=== PATIENT | female | born 1985 | race Caucasian/White ===

== ENCOUNTER 2016-08-20 00:33 | Emergency (ER) | payer OTHER ==
--- NOTE | 2016-08-20 02:23 | ED ---
I, Oh,Mabel, scribed for Damion Hernandez MD on 08/20/16 at 0205 . Shortness of Breath - HPI Summary HPI Summary: This 31 y/o female presents to ED for trouble breathing since 2-3 days ago. She decided to visit ED today when she became concerned with persistent dyspnea. Oxygen sat on RA at triage was 100%. Positive dizziness. PMHx includes depression/anxiety, bipolar, borderline personality disorder, and DM that is controlled with insulin pump. Pt recently had her med changes per PCP orders and states that she has been feeling dizziness ever since. Pt however denies notifying her PCP. - History of Current Complaint Chief Complaint: EDDizziness Time Seen by Provider: 08/20/16 01:58 Hx Obtained From: Patient, Medical Records Onset/Duration: Sudden Onset Timing: Constant Dyspnea At: Rest Associated Signs & Symptoms: Dizzy - Allergy/Home Medications Allergies/Adverse Reactions: Allergies Allergy/AdvReac Type Severity Reaction Status Date / Time No Known Allergies Allergy Verified 05/08/15 22:35 PMH/Surg Hx/FS Hx/Imm Hx Endocrine/Hematology History: Reports: Hx Diabetes Cardiovascular History: Denies: Hx Peripheral Vascular Disease Musculoskeletal History: Reports: Hx Back Problems Denies: Hx Arthritis, Hx Osteoporosis Sensory History: Denies: Hx Cataracts, Hx Contacts or Glasses, Hx Glaucoma Opthamlomology History: Denies: Hx Cataracts, Hx Contacts or Glasses, Hx Glaucoma Psychiatric History: Reports: Hx Anxiety, Hx Depression, Hx Inpatient Treatment , Hx Community Mental Health Tx, Hx Bipolar Disorder, Hx Suicide Attempt, Hx Substance Abuse Denies: Hx Attention Deficit Hyperactivity Disorder, Hx Eating Disorder, Hx Panic Disorder, Hx Post Traumatic Stress Disorder, Hx Schizophrenia, Hx of Violent Episodes Against Others, Other Psychiatric Issues/Disorders - Surgical History Surgery Procedure, Year, and Place: abscess drained under general anesthesia - Immunization History Date of Tetanus Vaccine: unknown Infectious Disease History: No Infectious Disease History: Denies: Hx Clostridium Difficile, Hx Hepatitis, Hx Human Immunodeficiency Virus (HIV), Hx of Known/Suspected MRSA, Hx Shingles, Hx Tuberculosis, Hx Known/ Suspected VRE, Hx Known/Suspected VRSA, History Other Infectious Disease, Traveled Outside the [place] in Last 30 Days - Family History Known Family History: Positive: Other Family History: Schizophrenia, anxiety, and EtOH dependence - Social History Alcohol Use: None Alcohol Amount: had approx 6 drinks tonight Hx Substance Use: Yes Substance Use Type: Reports: Sedatives, Tranquilizers Substance Use Comment - Amount & Last Used: Benzo's Hx Tobacco Use: Yes Smoking Status (MU): Light Every Day Tobacco Smoker Type: Cigarettes Amount Used/How Often: 1/2 PPD Length of Time of Smoking/Using Tobacco: 13 years Have You Smoked in the Last Year: Yes Review of Systems Negative: Fever Positive: Other - "trouble breathing" All Other Systems Reviewed And Are Negative: Yes Physical Exam Triage Information Reviewed: Yes Vital Signs On Initial Exam: Initial Vitals Temp Pulse Resp BP Pulse Ox 99.0 F 108 14 145/84 100 08/20/16 00:34 08/20/16 00:34 08/20/16 00:34 08/20/16 00:34 08/20/16 00:34 Vital Signs Reviewed: Yes Appearance: Positive: Well-Appearing, No Pain Distress Skin: Positive: Warm Head/Face: Positive: Normal Head/Face Inspection Eyes: Positive: DILLON ENT: Positive: Hearing grossly normal Neck: Positive: Supple Respiratory/Lung Sounds: Positive: Clear to Auscultation, Breath Sounds Present Cardiovascular: Positive: RRR Abdomen Description: Positive: Nontender, Soft Bowel Sounds: Positive: Present Musculoskeletal: Positive: Strength/ROM Intact Neurological: Positive: Alert, Oriented to Person Place, Time Diagnostics - Vital Signs Vital Signs Temp Pulse Resp BP Pulse Ox 08/20/16 00:34 99.0 F 108 14 145/84 100 - Laboratory Result Diagrams: 08/20/16 02:20 08/20/16 02:20 Lab Statement: Any lab studies that have been ordered have been reviewed, and results considered in the medical decision making process. Re-Evaluation - Re-Evaluation First Eval Change: Improved Comment: pt feels well, pt with low co2 will have pt f/u with pcp Course/Dx - Diagnoses Provider Diagnoses: Anxiety Discharge - Discharge Plan Condition: Improved Disposition: HOME Patient Education Materials: Anxiety (ED) Referrals: Non Staff,Doctor [Primary Care Provider] - 2 Days The documentation as recorded by the Nic kang Soohyun accurately reflects the service I personally performed and the decisions made by me, Damion Hernandez MD.
[2016-08-20 02:32] LABS: Hematocrit 43 % (35-47); Hemoglobin 14.9 g/dl (12.0-16.0); Mean Corpuscular HGB Conc 35 g/dl (31-36); Mean Corpuscular Hemoglobin 32 pg (27-31); Mean Corpuscular Volume 93 fL (80-97); Mean Platelet Volume 8 um3 (7.4-10.4); Red Blood Count 4.63 10^6/ul (4.0-5.4); Red Cell Distribution Width 12 % (10.5-15); White Blood Count 12.3 10^3/ul (3.5-10.8)
[2016-08-20 02:50] LABS: BUN/Creatinine Ratio 23.9 (8-20); Calcium 8.7 mg/dL (8.6-10.3); EGFR African American 132.9 (>60); EGFR Non-African American 103.3 (>60); Potassium 3.7 mmol/L (3.5-5.0)
[2016-08-20 02:51] LABS: Lithium 0.43 mmol/L (0.6-1.2)
[2016-08-20 02:59] VITALS: BP 129/74
== END 2016-08-20 02:58 | disposition home or self-care (01) ==
LOC: ED 00:33
DX: F41.9 Anxiety disorder, unspecified (principal); R06.00 Dyspnea, unspecified; F17.210 Nicotine dependence, cigarettes, uncomplicated
CPT/HCPCS: 36415; 80048; 80178; 85025; 99281

== ENCOUNTER 2016-08-21 20:34 | Emergency (ER) | payer OTHER ==
[2016-08-21 20:48] VITALS: BP 135/85
--- NOTE | 2016-08-21 20:56 | UC ---
Dizzy HPI HPI Summary: The patient comes in today for: 1. Shortness of breath and dizziness, headache, nausea, feel like I am going to pass out: Onset: Dizziness and nausea started a week ago. Difficulty breathing started 3- 4 days ago. Palliative/provocative: Nothing makes her symptoms better or worse. Quality: Dull Region: In terms of where her headache is she states, "I don't know--all of it. " Severity: 08/13 Time: Constant. Associated symptoms: Dizziness: near syncope Vomiting: x 1. Diarrhea: None. ON and off for 1 week: never "passed out." Previous evaluation and treatment: She was seen in the "a couple nights ago " and told her "that I was fine." Previous treatment at home: None except Xanax today which helped her go to sleep. She has not been eating due to her nausea. * - History Of Current Complaint Chief Complaint: UCRespiratory Stated Complaint: TROUBLE BREATHING AND DIZZY Time Seen by Provider: 08/21/16 20:38 Hx Obtained From: Patient, Family/Central Sterile Technician Hx Last Menstrual Period: NO PERIOD FOR 1 YEAR. SHE HAS AN IUD - Allergies/Home Medications Allergies/Adverse Reactions: Allergies Allergy/AdvReac Type Severity Reaction Status Date / Time No Known Allergies Allergy Verified 08/21/16 20:40 Home Medications: Home Medications Levonorgestrel (Iud) [Mirena IUD] 1 imp IMPLANT DAILY 08/21/16 [History Confirmed 08/21/16] PMH/Surg Hx/FS Hx/Imm Hx Previously Healthy: No Endocrine History Of: Reports: Diabetes Denies: Thyroid Disease, Hyperthyroidism, Hypothyroidism, Dyslipidemia Cardiovascular History Of: Denies: Cardiac Disorders, Hypertension, Pacemaker/ICD, Myocardial Infarction , Congestive Heart Failure, Atrial Fibrillation, Deep Vein Thrombosis, Bleeding Disorders Respiratory History Of: Denies: COPD, Asthma, Bronchitis, Pneumonia, Pulmonary Embolism GI/ History Of: Reports: Gastroesophageal Reflux Denies: Ulcer, Gastrointestinal Bleed, Gall Bladder Disease, Kidney Stones, Diverticulitis, Renal Disease, Urosepsis Neurological History Of: Denies: TIA, CVA, Dementia, Seizures, Migraine Psychological History Of: Reports: Anxiety, Depression, Bipolar Disorder Cancer History Of: Denies: Lung Cancer, Colorectal Cancer, Breast Cancer, Prostate Cancer, Cervical Cancer Other History Of: Negative For: HIV, Hepatitis B, Hepatitis C, Anticoagulant Therapy - Surgical History Surgical History: Yes Surgery Procedure, Year, and Place: abscess drained under general anesthesia - Family History Known Family History: Positive: Other Negative: Cardiac Disease, Hypertension Family History: Schizophrenia, anxiety, and EtOH dependence - Social History Occupation: Unemployed Alcohol Use: None Alcohol Amount: had approx 6 drinks tonight Substance Use Type: Sedatives, Tranquilizers Substance Use Comment - Amount & Last Used: Benzo's Smoking Status (MU): Light Every Day Tobacco Smoker Type: Cigarettes Amount Used/How Often: 1/2 PPD Length of Time of Smoking/Using Tobacco: 13 years Have You Smoked in the Last Year: Yes Household Exposure Type: Cigarettes - Immunization History Most Recent Influenza Vaccination: client unable to recall Most Recent Tetanus Shot: "few years ago" Most Recent Pneumonia Vaccination: reports she has received in the past Review of Systems Constitutional: Negative Skin: Negative Eyes: Negative ENT: Negative Respiratory: Shortness Of Breath Cardiovascular: Negative, Chest Pain - Chest pain is retrosternal and dull. No radiation. Nausea: present. Gastrointestinal: Negative, Vomiting Genitourinary: Negative Motor: Negative Musculoskeletal: Arthralgia, Myalgia All Other Systems Reviewed And Are Negative: Yes Physical Exam Triage Information Reviewed: Yes Appearance: No Pain Distress, Well-Nourished, Other: - The patient is very subdued. She can be barely heard when she answers my questions. She is not struggling for breath. She barely keeps her eyes open. She has no animation. She is cooperative but minimally interested in doing things (such as agreeding to testing) which may be helpful in her medical care. Vital Signs: Initial Vital Signs Temp 97.8 F 08/21/16 20:44 Pulse 95 08/21/16 20:44 Resp 16 08/21/16 20:44 BP 135/85 08/21/16 20:44 Pulse Ox 100 08/21/16 20:44 Vital Signs Reviewed: Yes Eyes: Positive: Conjunctiva Clear. Negative: Discharge ENT: Positive: Hearing grossly normal. Negative: Pharyngeal erythema, Nasal congestion, Nasal drainage, TM bulging, TM dull, TM red, Tonsillar swelling, Tonsillar exudate Dental: Negative: Gross Decay/Caries @, Dental Fracture @ Neck: Positive: Supple, Nontender, No Lymphadenopathy. Negative: Nuchal Rigidity Respiratory: Positive: Chest non-tender, Lungs clear, No respiratory distress, No accessory muscle use, Other: - She has no abnormal lung sounds. She offers poor effort when asked to take a deep breath.. Negative: Rhonchi, Wheezing Cardiovascular: Positive: RRR, No Murmur Abdomen Description: Positive: Nontender, No Organomegaly, Soft. Negative: Distended, Guarding Musculoskeletal: Positive: Strength Intact, ROM Intact, No Edema Neurological: Positive: Alert, Muscle Tone Normal Psychological: Positive: Normal Response To Family, Age Appropriate Behavior, Consolable Skin: Negative: rashes, breakdown Diagnostics - Laboratory Diagnostic Studies Completed/Ordered: Random blood glucose: 235. CXR: (-). EKG : Rate: 83. Rhythm: normal sinus. Ectopy: None. Acute changes: None. Prolonged QT interval. Urine screen: Specific gravity: 1.030. WBC: (-). Nitrite: (-). Blood: 2+. Protein: 2+. Glucose: 1+ Dizzy Course/Dx - Course Course Of Treatment: Patient was told of our limited testing options here. She initially was not particularly interested in getting any of them done. But, her female automatic maintainer was able to convince her to have them done. She was told that I could not explain her shortness of breath, near syncope. She had a prolonged QT interval. She was told that to investigate this, she would need to have further evaluation. She refuses to go to the ER tonight. - Differential Dx/Diagnosis Differential Diagnosis/HQI/PQRI: Dysrhythmia Provider Diagnoses: Prolonged QT interval. Diabetes. Dyspnea etiology undetermined. Near syncope. Bipolar. Nausea. Headache. Depression Discharge - Discharge Plan Condition: Stable Disposition: AGAINST MEDICAL ADVICE Referrals: Non Staff,Doctor [Primary Care Provider] - [facility] [Outside] David Yao DO [Medical Doctor] - As Soon As Possible (Please contact Dr. Yao's office as soon as you can for a follow up on your prolonged QT interval ) Additional Instructions: If you are not going to the ER, please see your primary care provider as soon as you can for evaluation and treatment. If you don't have a primary care provider, please call the physician referral line. Between now and then, please try to see your reimbursement representative for follow up. If you get worse, please reconsider going to the ER.
--- NOTE | 2016-08-21 21:49 | RAD ---
INDICATION: Shortness of breath. COMPARISON: Similar chest x-ray dated February 27, 2015 TECHNIQUE: PA and lateral views of the chest were obtained. FINDINGS: The heart and mediastinum are normal in size and contour. The lungs are grossly clear. There is no evidence of large pleural effusion. Visualized bones are normal for the patient's age. There is no radiographic evidence of free air beneath the diaphragm IMPRESSION: No radiographic evidence of acute cardiopulmonary disease.
== END 2016-08-21 22:00 | disposition left against medical advice (07) ==
LOC: UCEAST 20:34
DX: R06.00 Dyspnea, unspecified (principal); R55 Syncope and collapse; R11.0 Nausea; R51 Headache; I44.0 Atrioventricular block, first degree; E11.9 Type 2 diabetes mellitus without complications; F31.9 Bipolar disorder, unspecified; F17.210 Nicotine dependence, cigarettes, uncomplicated
CPT/HCPCS: 71020; 81003; 84702; 93005; 99212; G0463

== ENCOUNTER 2016-08-21 22:19 | Observation (INO) | payer OTHER ==
[2016-08-22] MEDS: NS 0.9% 1000 ML* 3,000 ML IV ONE ×2 (00:19→01:14)
[2016-08-22 00:40] LABS: Hemoglobin 16.1 g/dl (12.0-16.0); Red Cell Distribution Width 12 % (10.5-15)
[2016-08-22 00:42] LABS: Hematocrit 47 % (35-47); Mean Corpuscular HGB Conc 34 g/dl (31-36); Mean Corpuscular Hemoglobin 32 pg (27-31); Mean Corpuscular Volume 94 fL (80-97); Mean Platelet Volume 8 um3 (7.4-10.4); Red Blood Count 5.01 10^6/ul (4.0-5.4); White Blood Count 10.7 10^3/ul (3.5-10.8)
[2016-08-22 00:50] LABS: ALT 15 U/L (7-52); AST 12 U/L (13-39); Albumin 4.3 g/dL (3.2-5.2); Alkaline Phosphatase 116 U/L (34-104); BUN/Creatinine Ratio 8.1 (8-20); Blood Urea Nitrogen 6 mg/dL (6-24); C Reactive Protein 11.58 mg/L (< 5.00); Calcium 8.8 mg/dL (8.6-10.3); Chloride 105 mmol/L (101-111); Creatine Kinase 36 U/L (10-223); EGFR African American 118.5 (>60); EGFR Non-African American 92.1 (>60); Globulin 2.9 g/dL (2-4); Glucose 165 mg/dL (70-100); Potassium 3.5 mmol/L (3.5-5.0); Sodium 132 mmol/L (133-145); Total Protein 7.2 g/dL (6.4-8.9)
[2016-08-22 00:54] LABS: Alcohol < 10 mg/dL (<10)
--- NOTE | 2016-08-22 00:55 | ED ---
Complex/Multi-Sys Presentation - HPI Summary HPI Summary: 31 year old female arrived to [facility] from [facility] c/o N/V and dizziness for 1 week ; SOB for the past 5 days. Vomiting has been minimal. Denies diarrhea. She also denies any fever, chills, URI sx, cough, back pain, ab pain, dysuria, flank pain , skin changes/wounds. She does not know what triggered these sx but reports she stopped taking her olanzapine and fluoxetine 4 weeks ago "cold turkey". She is currently tapering her lithium and trileptal. These were rx'd through her psychiatrist. However after discussing with her psychiatrist, pt did not feel these meds were working for her anymore and so she decided to stop taking them. Reports her psychiatrist told her to go ahead and stop meds without taper. She denies any ill effects upon abrupt cessation of olanzapine and fluoxetine. She also remarks that she's tapering the lithium and trileptal because she felt it would be safer than stopping cold turkey. Still taking wellbutrin. She takes these for bipolar d/o among other MH d/o's. Furthermore, her ECG at earlier tonight revealed QT prolongation. Most recent ECG from Mar 2015 was NSR w/o QT prolongation. She denies h/o cardiac pathology. NOTE: fluoxetine can cause QT prolongation. U/A @ reveals + protein, +glucose, + blood, + ketones She also had a CXR @ - normal. She was at [facility] on 08/19/2016 with similar symptoms. She is a regular drinker and smoker - denies illicit drug use. Admits she took 1.5mg of xanax today to help her sleep as she just didn't feel good. She has Type 1 diabetes. Uses an insulin pump which she reports was not working earlier today - screen flashed a message to call customer service at one point. She believes this has been working well otherwise. Just changed it a few days ago. Has been in diabetic ketoacidosis before and does not feel this is what's happening now. - History Of Current Complaint Chief Complaint: EDGeneral Time Seen by Provider: 08/21/16 23:22 Hx Obtained From: Patient - Allergies/Home Medications Allergies/Adverse Reactions: Allergies Allergy/AdvReac Type Severity Reaction Status Date / Time No Known Allergies Allergy Verified 08/21/16 20:40 PMH/Surg Hx/FS Hx/Imm Hx Previously Healthy: No - today's sx present for past 1 week Endocrine/Hematology History: Reports: Hx Diabetes - Type 1, insulin pump Denies: Hx Anticoagulant Therapy, Hx Thyroid Disease Cardiovascular History: Denies: Hx Congestive Heart Failure, Hx Deep Vein Thrombosis, Hx Hypertension , Hx Myocardial Infarction, Hx Pacemaker/ICD, Hx Peripheral Vascular Disease Respiratory History: Denies: Hx Asthma, Hx Chronic Obstructive Pulmonary Disease (COPD), Hx Lung Cancer, Hx Pneumonia, Hx Pulmonary Embolism GI History: Denies: Hx Gall Bladder Disease, Hx Gastrointestinal Bleed, Hx Ulcer, Hx Urosepsis History: Denies: Hx Kidney Stones, Hx Renal Disease Musculoskeletal History: Reports: Hx Back Problems Denies: Hx Arthritis, Hx Osteoporosis Sensory History: Denies: Hx Cataracts, Hx Contacts or Glasses, Hx Glaucoma Opthamlomology History: Denies: Hx Cataracts, Hx Contacts or Glasses, Hx Glaucoma Neurological History: Denies: Hx Dementia, Hx Migraine, Hx Seizures, Hx Transient Ischemic Attacks (TIA) Psychiatric History: Reports: Hx Anxiety, Hx Depression, Hx Inpatient Treatment , Hx Community Mental Health Tx, Hx Bipolar Disorder, Hx Suicide Attempt, Hx Substance Abuse Denies: Hx Attention Deficit Hyperactivity Disorder, Hx Eating Disorder, Hx Panic Disorder, Hx Post Traumatic Stress Disorder, Hx Schizophrenia, Hx of Violent Episodes Against Others, Other Psychiatric Issues/Disorders - Surgical History Surgery Procedure, Year, and Place: abscess drained under general anesthesia - Immunization History Date of Tetanus Vaccine: unknown Infectious Disease History: No Infectious Disease History: Denies: Hx Clostridium Difficile, Hx Hepatitis, Hx Human Immunodeficiency Virus (HIV), Hx of Known/Suspected MRSA, Hx Shingles, Hx Tuberculosis, Hx Known/ Suspected VRE, Hx Known/Suspected VRSA, History Other Infectious Disease, Traveled Outside the [place] in Last 30 Days - Family History Known Family History: Positive: None, Other Negative: Cardiac Disease, Hypertension Family History: Schizophrenia, anxiety, and EtOH dependence - Social History Lives: With Family - boyfriend Alcohol Use: None Alcohol Amount: had approx 6 drinks last night Hx Substance Use: Yes Substance Use Type: Reports: Sedatives, Tranquilizers Substance Use Comment - Amount & Last Used: Benzo's Hx Tobacco Use: Yes Smoking Status (MU): Current Every Day Smoker Type: Cigarettes Amount Used/How Often: 1/2 PPD Length of Time of Smoking/Using Tobacco: 13 years Have You Smoked in the Last Year: Yes Review of Systems Positive: Fatigue. Negative: Fever, Chills ENT: Negative Negative: Chest Pain Positive: Shortness Of Breath - see HPI. Negative: Cough Positive: Vomiting, Nausea. Negative: Abdominal Pain, Diarrhea Genitourinary: Negative Negative: dysuria, discharge, frequency, flank pain Musculoskeletal: Negative Skin: Negative Positive: Weakness - generalized Psychological: Normal All Other Systems Reviewed And Are Negative: Yes Physical Exam Triage Information Reviewed: Yes Vital Signs On Initial Exam: Initial Vitals Temp Pulse Resp BP Pulse Ox 97.6 F 87 16 136/88 100 08/21/16 22:30 08/21/16 22:30 08/21/16 22:30 08/21/16 22:30 08/21/16 22:30 Vital Signs Reviewed: Yes Appearance: Positive: No Pain Distress, Ill-Appearing - appears mildly fatigued , Obese Skin: Positive: Warm, Dry - inuslin pump site on RLQ is w/o erythema, edema or d /c Head/Face: Positive: Normal Head/Face Inspection Eyes: Positive: Normal, EOMI, Conjunctiva Clear - ANICTERIC SCLERA ENT: Positive: Hearing grossly normal, TMs normal, Other - Lips and oral mucosa are dry - breath has strong acetone aroma. Negative: Nasal congestion, Nasal drainage Neck: Positive: Supple, Nontender Respiratory/Lung Sounds: Positive: Clear to Auscultation, Breath Sounds Present. Negative: Rales, Rhonchi, Wheezes Cardiovascular: Positive: Normal, RRR, Pulses are Symmetrical in both Upper and Lower Extremities, S1, S2. Negative: Murmur, Rub Abdomen Description: Positive: Nontender, Soft Bowel Sounds: Positive: Present Musculoskeletal: Positive: Normal, Strength/ROM Intact Neurological: Positive: Normal, Sensory/Motor Intact, Alert, Oriented to Person Place, Time, CN Intact II-III Psychiatric: Positive: Normal - Ross Coma Scale Coma Scale Total: 15 Diagnostics - Vital Signs Vital Signs Temp Pulse Resp BP Pulse Ox 08/21/16 22:30 97.6 F 87 16 136/88 100 - Laboratory Lab Results: Lab Results 08/22/16 Range/Units 00:14 WBC 10.7 (3.5-10.8) 10^3/ul RBC 5.01 (4.0-5.4) 10^6/ul Hgb 16.1 H (12.0-16.0) g/dl Hct 47 (35-47) % MCV 94 (80-97) fL MCH 32 H (27-31) pg MCHC 34 (31-36) g/dl RDW 12 (10.5-15) % Plt Count 221 (150-450) 10^3/ul MPV 8 (7.4-10.4) um3 Neut % (Auto) 71.7 (38-83) % Lymph % (Auto) 20.8 L (25-47) % [place] % (Auto) 5.9 (1-9) % Eos % (Auto) 1.1 (0-6) % Baso % (Auto) 0.5 (0-2) % Absolute Neuts (auto) 7.7 (1.5-7.7) 10^3/ul Absolute Lymphs (auto) 2.2 (1.0-4.8) 10^3/ul Absolute Monos (auto) 0.6 (0-0.8) 10^3/ul Absolute Eos (auto) 0.1 (0-0.6) 10^3/ul Absolute Basos (auto) 0 (0-0.2) 10^3/ul Absolute Nucleated RBC 0 10^3/ul Nucleated RBC % 0 Result Diagrams: 08/22/16 00:14 08/22/16 00:14 Lab Statement: Any lab studies that have been ordered have been reviewed, and results considered in the medical decision making process. Complex Multi-Symp Course/Dx Course Of Treatment: Pt presents w/ 1 week of N/V and 5 days of SOB. She was seen at and found to have + urine findings of ketoacidosis as well as QT prologation on ECG. Upon arrival here, her breath is noted to have an acetone aroma and she admits her pump has been acting up this afternoon - most likely not working. Labs indicate a low CO2, phosphorous, K+ and elevated anion gap. WBC's are WNL. This and glucose are improved from labs yesterday although glucose is still elelvated at 163. She has not had anything to eat today as she just didn't feel well. Discussed case w/ Dr. Juárez who would like insulin drip at 0.05units/kg/hr and D5 in 1/2NS K20 @ 200cc/hr. Her insulin pump will be removed prior to insulin drip and advised pt to inqure about repair while here. She will be admitted to ICU for tx and observation. - Diagnoses Provider Diagnoses: Hypophosphatemia, Ketonuria, Diabetes type I - Physician Notifications Discussed Care Of Patient With: Dr. Hernandez. Dr. Juárez Discharge - Discharge Plan Condition: Stable Disposition: ADMITTED TO [facility]
[2016-08-22 01:04] LABS: TSH (Thyroid Stimulating Horm) 2.07 mcIU/mL (0.34-5.60)
[2016-08-22 01:08] LABS: Anion Gap 16 mmol/L (2-11); CO2 Carbon Dioxide 11 mmol/L (22-32)
[2016-08-22 01:09] LABS: Phosphorus < 1.0 mg/dL (2.5-5.0)
[2016-08-22] MEDS: D5W 1/2 NS KCl 20 Meq 1000 ML* 1,000 ML IV SCH ×2 (02:09→08:15)
[2016-08-22 03:40] LABS: PCO2 Arterial 17 mmHg (35-45)
[2016-08-22] MEDS ORDERED: ALPRAZolam TAB* 0.5 MG PO PRN (03:59)
[2016-08-22 04:05] LABS: BUN/Creatinine Ratio 7.8 (8-20); EGFR African American 140.1 (>60); Magnesium 1.8 mg/dL (1.9-2.7); Potassium 3.2 mmol/L (3.5-5.0)
[2016-08-22] MEDS ORDERED: Potassium Phosphate IV* 15 MMOLE in NS 0.9% 250 ML* 250 ML IVPB ONE (04:06)
[2016-08-22 04:43] LABS: Urine Bacteria Absent (Absent); Urine Bilirubin Negative (Negative); Urine Glucose 3+(>=500 mg/dL) (Negative); Urine Nitrite Negative (Negative)
[2016-08-22] MEDS ORDERED: NS 0.9% 250 ML* 250 ML ONE (05:29)
[2016-08-22] MEDS: Heparin VIAL(*) 5000 UNITS/ML VIAL (FIVE THOUSAND) SUBCUT SCH ×3 (06:02→20:39)
[2016-08-22 07:08] LABS: BUN/Creatinine Ratio 7.3 (8-20); Blood Urea Nitrogen 4 mg/dL (6-24); Calcium 7.2 mg/dL (8.6-10.3); Chloride 114 mmol/L (101-111); EGFR African American 166.9 (>60); EGFR Non-African American 129.8 (>60); Glucose 201 mg/dL (70-100); Sodium 135 mmol/L (133-145)
[2016-08-22 07:19] LABS: Potassium 2.7 mmol/L (3.5-5.0)
[2016-08-22 07:20] LABS: Anion Gap 11 mmol/L (2-11); CO2 Carbon Dioxide 10 mmol/L (22-32)
[2016-08-22 07:26] LABS: Phosphorus < 1.0 mg/dL (2.5-5.0)
[2016-08-22] MEDS: BuPROPion XL* 300 MG TAB.XL PO SCH (07:51)
[2016-08-22] MEDS: Potassium & Sodium Phos 250MG* = 1 PACKET PO SCH ×4 (07:51→20:39)
[2016-08-22] MEDS ORDERED: Acetaminophen SUPP* 650 MG SUPP PR PRN (08:21)
[2016-08-22] MEDS ORDERED: Ondansetron INJ* 2 MG/ML VIAL IV PRN (08:21)
[2016-08-22] MEDS ORDERED: Potassium Chlor TAB* 20 MEQ TAB.ER PO ONE (10:14)
[2016-08-22 10:39] LABS: BUN/Creatinine Ratio 7.4 (8-20); Calcium 7.9 mg/dL (8.6-10.3); EGFR African American 170.5 (>60); EGFR Non-African American 132.6 (>60); Potassium 2.9 mmol/L (3.5-5.0)
[2016-08-22] MEDS ORDERED: Dextrose 50% Syringe 50 ML* 25 GM/50 ML SYRINGE IV PUSH PRN (11:26)
[2016-08-22] MEDS ORDERED: Insulin GLARGINE(*) 1 UNITS UNIT SUBCUT SCH (12:00)
[2016-08-22] MEDS: Insulin LISPRO* 1 UNITS UNIT SUBCUT SCH ×6 (12:43→20:30)
--- NOTE | 2016-08-22 14:32 | HP ---
HISTORY AND PHYSICAL: DATE OF ADMISSION: 08/22/2016. CHIEF COMPLAINT: Shortness of breath. HISTORY OF PRESENT ILLNESS: The patient is a 31-year-old woman with past medical history of type 1 diabetes and bipolar disorder, who presented to [facility] with chief complaint of shortness breath. She also has some chest pain, which is constant. It is 3/10 in severity. It is a dull pain. It is mid sternal. The shortness of breath is also constant. It cannot get worse when she lies down, but does only matter if she is moving. She denies any wheezing or cough. She has never had this before. Of note, the patient was normally on fluoxetine and olanzapine, which she stopped suddenly 2 weeks ago, she said according to her doctor's instruction, and she is being tapering herself off lithium and Trileptal as well. PAST MEDICAL HISTORY: Significant for type 1 diabetes, depression, anxiety, and bipolar disorder. MEDICATIONS: Her current medications are: 1. Insulin pump. 2. Bupropion XL 300 mg in the morning. 3. IUD implant. 4. As noted, Xanax 1 mg 3 times a day as needed. As noted, she has been tapering off her lithium and Trileptal. She stopped her fluoxetine and olanzapine. ALLERGIES: No known drug allergies. FAMILY HISTORY: Mother is alive and well at 55. Father is alive at 65 with COPD and prostate cancer. SOCIAL HISTORY: She smokes few cigarettes a day. Rare alcohol. No recreational drug abuse. She is on disability. She has a significant other for 13 years, Yohan Underwood, she calls her healthcare proxy. She has a 7-year- old daughter. REVIEW OF SYSTEMS: A 14-point review of systems was completed with the patient. All pertinent positives and negatives are in the history of present illness, otherwise is negative. PHYSICAL EXAMINATION GENERAL: Pleasant woman, lying in bed, in no acute distress. VITAL SIGNS: Temperature 99.3 degrees, heart rate 78 beats per minute, respiratory rate 16 breaths per minute, pulse ox 100%, blood pressure /83. HEENT: Normocephalic, atraumatic. Pupils equal, round, and reactive to light. Moist mucous membranes. NECK: Supple. No JVD, bruits, palpable thyroid, or lymphadenopathy. CHEST: Clear to auscultation and percussion bilaterally. CARDIOVASCULAR: S1 and S2 appreciated. Regular rate and rhythm. ABDOMEN: Positive bowel sounds in all 4 quadrants. Soft, nontender, nondistended. No hepatosplenomegaly. EXTREMITIES: No cyanosis, clubbing, or edema. +2 peripheral pulses bilaterally. NEURO: Alert and oriented x2. Moves all extremities. SKIN: No rash or abnormalities. DIAGNOSTIC STUDIES/LAB DATA: White count 10.7, hemoglobin 16.1, hematocrit 47 , platelets 221. pH on ABG is 7.17, PCO2 17, PO2 118, bicarb is 9.3. Sodium 132, potassium 3.5, chloride 105, CO2 11, BUN 6, creatinine 0.74, glucose 165. Urinalysis: Trace leukocyte esterase, +3 glucose. Serum alcohol level is less than 10. Chest x-ray done at urgent care shows no radiographic evidence of acute cardiopulmonary disease. EKG shows normal sinus rhythm at 83 beats per minute, normal axis, no acute ST- T wave changes. ASSESSMENT AND PLAN: 1. Diabetic ketoacidosis. Her sugar was actually only 165 when she came here, but she was certainly acidotic. She had an anion gap acidosis, this is the most likely cause. I will initiate her on 0.05 units/kg/hour insulin drip. I will start her on D5 half-normal saline with mEq of potassium chloride. I will check her fingersticks q.1 hour. I will check her BMP q.4 hours. At this point, it is not entirely clear what caused this or if there is any relation to her sudden stopping of her psychiatric medications. 2. Shortness of breath. The patient, I believe, appeared to have pneumonia and I doubt she has pulmonary embolism. Although it is not a typical scenario, she could be short of breath from withdrawal from either the fluoxetine or the olanzapine, just from the hyperventilation type of syndrome. I will monitor and if she becomes hypoxic, please note that her pulse ox is 100% at this time, or if she has any other concern, I might consider pulmonary embolism study. 3. Bipolar disorder. I will consider consulting Psychiatry with her sudden stopping of these medications, which certainly could be contributing to this problem. 4. FEN. NPO. 5. DVT prophylaxis. Heparin subcu. 6. The patient is a full code. TIME SPENT: Over 80 minutes was spent on this H and P; more than 45 minutes of which was spent in direct [id number] contact with the patient in evaluation, physical exam, counseling, and coordination of care. CC: Dr. Marquise Nevarez* [id number]/[facility] #: [id number] MTDD
[2016-08-22 15:06] LABS: BUN/Creatinine Ratio 5.4 (8-20); Blood Urea Nitrogen 3 mg/dL (6-24); CO2 Carbon Dioxide 18 mmol/L (22-32); Calcium 8.1 mg/dL (8.6-10.3); Chloride 111 mmol/L (101-111); EGFR African American 163.5 (>60); EGFR Non-African American 127.1 (>60); Glucose 109 mg/dL (70-100); Sodium 136 mmol/L (133-145)
[2016-08-22] MEDS: NS 0.9% 1000 ML* 1,000 ML IV SCH ×2 (15:18→22:00)
--- NOTE | 2016-08-22 15:20 | PN ---
Subjective Date of Service: 08/22/16 Interval History: Seen and examined this AM SOB resolved No pain Not hungry Feels thirsty Objective Active Medications: Acetaminophen (Tylenol Supp*) 650 mg CO Q4H PRN PRN Reason: FEVER/PAIN Alprazolam (Xanax Tab*) 1 mg PO TID PRN PRN Reason: ANXIETY Bupropion HCl (Bupropion Xl*) 300 mg PO QAM [facility] Last Admin: 08/22/16 07:51 Dose: 300 mg Dextrose (D50w Syringe 50 Ml*) 12.5 gm IV PUSH .FOR FS < 60 - SS PRN PRN Reason: FS < 60 Heparin Sodium (Porcine) (Heparin Vial(*)) 5,000 units SUBCUT Q8HR [facility] Last Admin: 08/22/16 13:14 Dose: 5,000 units Sodium Chloride (Ns 0.9% 1000 Ml*) 1,000 mls @ 200 mls/hr IV PER RATE [facility] Stop: 08/24/16 20:14 Insulin Glargine (Lantus(*)) 35 units SUBCUT Q24H [facility] Last Admin: 08/22/16 12:01 Dose: 35 units Insulin Human Lispro (Humalog*) 0 units SUBCUT FS ACHS ICU MALA PRN Reason: Protocol Last Admin: 08/22/16 13:14 Dose: 3 units Ondansetron HCl (Zofran Inj*) 4 mg IV Q4H PRN PRN Reason: NAUSEA Potassium Phos/Sodium Phos (Neutra Phos 250 Mg Sean*) 250 mg PO QID [facility] Last Admin: 08/22/16 13:13 Dose: 250 mg Vital Signs 08/22/16 08/22/16 08/22/16 03:58 04:00 04:31 Temperature 99.3 F Pulse Rate 85 86 78 Respiratory 15 24 16 Rate Blood Pressure 123/64 126/64 114/83 (mmHg) O2 Sat by Pulse 100 100 100 Oximetry 08/22/16 08/22/16 08/22/16 04:33 05:00 06:00 Temperature Pulse Rate Respiratory 16 16 14 Rate Blood Pressure (mmHg) O2 Sat by Pulse Oximetry 08/22/16 08/22/16 08/22/16 06:42 07:00 08:00 Temperature 99.3 F Pulse Rate 83 80 86 Respiratory 20 15 17 Rate Blood Pressure 92/46 102/64 (mmHg) O2 Sat by Pulse 100 100 100 Oximetry 08/22/16 08/22/16 08/22/16 09:00 10:00 11:00 Temperature Pulse Rate 81 85 91 Respiratory 17 17 21 Rate Blood Pressure 105/61 106/68 (mmHg) O2 Sat by Pulse 99 99 100 Oximetry 08/22/16 08/22/16 08/22/16 12:00 13:00 13:04 Temperature 99.4 F Pulse Rate 83 89 Respiratory 19 17 20 Rate Blood Pressure 94/51 (mmHg) O2 Sat by Pulse 99 99 Oximetry 08/22/16 08/22/16 08/22/16 13:08 14:00 15:00 Temperature Pulse Rate 85 82 81 Respiratory 17 25 17 Rate Blood Pressure 109/67 103/66 110/70 (mmHg) O2 Sat by Pulse 99 100 100 Oximetry Oxygen Devices in Use Now: None Appearance: NAD Eyes: No Scleral Icterus, PERRLA Ears/Nose/Mouth/Throat: Clear Oropharnyx, Mucous Membranes Moist Neck: NL Appearance and Movements; NL JVP, Trachea Midline Respiratory: Symmetrical Chest Expansion and Respiratory Effort, Clear to Auscultation Cardiovascular: NL Sounds; No Murmurs; No JVD, RRR Abdominal: NL Sounds; No Tenderness; No Distention, No Hepatosplenomegaly Lymphatic: No Cervical Adenopathy Extremities: No Edema Skin: No Rash or Ulcers Neurological: Alert and Oriented x 3 Result Diagrams: 08/22/16 00:14 08/22/16 14:42 Additional Lab and Data: Lab Results 08/22/16 Range/Units 00:14 WBC 10.7 (3.5-10.8) 10^3/ul RBC 5.01 (4.0-5.4) 10^6/ul Hgb 16.1 H (12.0-16.0) g/dl Hct 47 (35-47) % MCV 94 (80-97) fL MCH 32 H (27-31) pg MCHC 34 (31-36) g/dl RDW 12 (10.5-15) % Plt Count 221 (150-450) 10^3/ul MPV 8 (7.4-10.4) um3 Neut % (Auto) 71.7 (38-83) % Lymph % (Auto) 20.8 L (25-47) % [place] % (Auto) 5.9 (1-9) % Eos % (Auto) 1.1 (0-6) % Baso % (Auto) 0.5 (0-2) % Absolute Neuts (auto) 7.7 (1.5-7.7) 10^3/ul Absolute Lymphs (auto) 2.2 (1.0-4.8) 10^3/ul Absolute Monos (auto) 0.6 (0-0.8) 10^3/ul Absolute Eos (auto) 0.1 (0-0.6) 10^3/ul Absolute Basos (auto) 0 (0-0.2) 10^3/ul Absolute Nucleated RBC 0 10^3/ul Nucleated RBC % 0 Microbiology and Other Data: Microbiology 08/22/16 04:29 Nasal Screen MRSA (PCR)(KINA) - Final Nasal Mrsa Negative Assess/Plan/Problems-Billing Assessment: 31 yo F h/o depression, anxiety, EtOH abuse, bipolar I, DM type I on insulin pump presents with SOB found with DKA - Patient Problems (1) DKA (diabetic ketoacidoses) Comment: HbA1c 12.8 Pump was malfunctioning but unclear for how long prior to presentation pt reports pump is 1.7 U/hr during day which decreases to 1.3U/hr starting at midnight AG closed with inuslin gtt, D5 1/2NS started lantus 35U with lispro SS Pt to try and get additional pump supplies in order to restart prior to discharge (2) Bipolar affective, depress, unspec Comment: Self titrating home medications psych consult requested to assist in medication management (3) Shortness of breath Comment: resolved with resolution of acidosis (4) Hypophosphatemia Comment: in setting of DKA and ?EtOh use c/w K-phos QID trend (5) DVT prophylaxis Comment: HSQ
[2016-08-22 20:08] LABS: BUN/Creatinine Ratio 5.6 (8-20); Calcium 7.7 mg/dL (8.6-10.3); EGFR African American 170.5 (>60); EGFR Non-African American 132.6 (>60); Potassium 3.5 mmol/L (3.5-5.0)
[2016-08-23] MEDS: NS 0.9% 1000 ML* 1,000 ML IV SCH (03:30)
[2016-08-23] MEDS: Heparin VIAL(*) 5000 UNITS/ML VIAL (FIVE THOUSAND) SUBCUT SCH ×2 (05:49→13:41)
[2016-08-23] MEDS: Potassium & Sodium Phos 250MG* = 1 PACKET PO SCH ×3 (08:51→13:36)
[2016-08-23] MEDS: BuPROPion XL* 300 MG TAB.XL PO SCH (08:51)
[2016-08-23] MEDS: Insulin LISPRO* 1 UNITS UNIT SUBCUT SCH ×2 (08:52)
[2016-08-23 10:12] LABS: Potassium 3.5 mmol/L (3.5-5.0)
[2016-08-23 10:13] LABS: BUN/Creatinine Ratio 4.7 (8-20); Calcium 8.1 mg/dL (8.6-10.3); EGFR African American 221.7 (>60); EGFR Non-African American 172.4 (>60)
[2016-08-23] MEDS ORDERED: Potassium Phosphate IV* 15 MMOLE in NS 0.9% 250 ML* 250 ML IVPB ONE (10:31)
[2016-08-23 12:26] VITALS: BP 119/78
[2016-08-23 12:48] LABS: Hematocrit 41 % (35-47); Mean Corpuscular HGB Conc 34 g/dl (31-36); Mean Corpuscular Hemoglobin 32 pg (27-31); Mean Corpuscular Volume 93 fL (80-97); Mean Platelet Volume 9 um3 (7.4-10.4); Red Blood Count 4.44 10^6/ul (4.0-5.4); Red Cell Distribution Width 13 % (10.5-15); White Blood Count 5.5 10^3/ul (3.5-10.8)
--- NOTE | 2016-08-24 00:55 | DS ---
DISCHARGE SUMMARY: DATE OF ADMISSION: 08/22/16 DATE OF DISCHARGE: 08/23/16 PRIMARY DIAGNOSIS: Diabetic ketoacidosis. SECONDARY DIAGNOSES: Include: 1. Bipolar type 1. 2. Hypokalemia. 3. Hypophosphatemia. MEDICATIONS ON DISCHARGE: Include: 1. Insulin pump, continue at home rate which was 1.7 units per hour until midnight, at which time decrease to 1.3 units per hour. Total daily dose 36 units of basal insulin with sliding scales. Home sliding scale regimen. 2. Bupropion XL 300 mg in the morning. 3. Alprazolam 1 mg 3 times a day as needed for anxiety. 4. Mirena IUD implant. PERTINENT LABORATORY DATA: pH on ABG on presentation 7.17, anion gap on presentation 16, phosphorus on presentation less than 1, bicarb on presentation 11. HISTORY OF PRESENT ILLNESS AND HOSPITAL COURSE: This is a 31-year-old female, past medical history as outlined in the history of present illness on the day of admission including type 1 diabetes, bipolar disorder, currently on insulin pump, follows with Dr. Nevarez, not seen for quite sometime, presented to the hospital with increasing shortness of breath, found with DKA. She notes that she recently has been titrating off her bipolar medications. She has a followup with Dr. Knight today but will not make it secondary to being hospitalized. She had had some trouble with her insulin pump, was giving her an error message. She was placed on insulin drip. Her anion gap closed. Her potassium was repleted. Her phosphorus was repleted. With resolution of her anion gap and acidosis, her shortness of breath improved. On the day of discharge, she was transitioned back to her insulin pump. There were no error messages as she obtained earlier with her insulin pump and it was functioning well throughout the day. We will continue to monitor fingerstick glucoses throughout the day. There were no errors and her fingersticks were under good control. Followup is made with Dr. Nevarez for next week. No additional changes were made to the patient's bipolar medications. She was encouraged to follow up with Dr. Knight as she has titrated off her lithium and Trileptal. There were no complications during this patient's hospital stay. At followup, please; 1. Evaluate for continued control of diabetes. Adjust insulin pump as needed. Her hemoglobin A1c was 12.8. 2. Titrate psychotropic medications as needed. 3. Consider checking BMP and phosphorus for continued improvement. 4. No other specific labs or vitals that need followup. Reasons to return to the hospital including but not limited to recurrent or worsening symptoms, chest pain, shortness of breath, nausea, vomiting, lightheadedness, loss of consciousness, near loss of consciousness, abdominal pain, bleeding from any source, inability to obtain or tolerate medication were discussed with the patient. She acknowledged understanding. TIME SPENT: Greater than 45 minutes were spent on discharge of this patient, greater than half was spent [id number] with the patient. CC: Dr. Nevarez; Member* [id number]/[facility] #: [id number] ANNIE
== END 2016-08-23 16:58 | disposition home or self-care (01) | DRG 420 ==
LOC: ED 22:19 → ICU 08-22 03:48 → INTOOBSV 08-22 03:48
PROVIDERS: ADMIT Internal Medicine; ATTEND Internal Medicine
DX: E10.10 Type 1 diabetes mellitus with ketoacidosis without coma (principal); E83.39 Other disorders of phosphorus metabolism; F41.9 Anxiety disorder, unspecified; F32.9 Major depressive disorder, single episode, unspecified; Z91.5 Personal history of self-harm; Z81.1 Family history of alcohol abuse and dependence; Z81.8 Family history of other mental and behavioral disorders; F17.210 Nicotine dependence, cigarettes, uncomplicated; F13.10 Sedative, hypnotic or anxiolytic abuse, uncomplicated; E87.6 Hypokalemia; Z79.4 Long term (current) use of insulin; Z96.41 Presence of insulin pump (external) (internal); F10.10 Alcohol abuse, uncomplicated; Y90.9 Presence of alcohol in blood, level not specified
CPT/HCPCS: 36415; 36600; 71020; 80048; 80053; 80178; 80320; 81003; 81015; 82550; 82803; 83036; 83605; 83735; 84100; 84443; 84702; 85025; 86140; 87086; 87641; 93005; 99212; 99281; 99406; A9270-GY; G0463; G0480; J1644

== ENCOUNTER 2016-09-29 22:42 | Inpatient (IN) | payer MEDICAID, OTHER ==
[2016-09-29 23:24] LABS: Urine Bacteria Absent (Absent); Urine Bilirubin Negative (Negative); Urine Glucose 2+(150 mg/dL) (Negative); Urine Nitrite Negative (Negative)
[2016-09-29 23:37] LABS: Benzodiazepine Urine Screen None Detected (None Detect)
--- NOTE | 2016-09-29 23:51 | ED ---
Nikita Person SooYoung, scribed for Damion Hernandez MD on 09/29/16 at 2316 . Psychiatric Complaint - HPI Summary HPI Summary: A 31 y/o F presents to ED with SI onset yesterday. She denies any previous attempts, but has had thoughts previously. - History Of Current Complaint Chief Complaint: EDMentalHealth Time Seen by Provider: 09/29/16 23:07 Hx Obtained From: Patient Hx Last Menstrual Period: NO PERIOD FOR 1 YEAR. SHE HAS AN IUD Onset/Duration: Lasting Days - yesterday, Still Present Timing: Constant Character: Depressed Has Suicidal: Reports: Thoughts - Allergies/Home Medications Allergies/Adverse Reactions: Allergies Allergy/AdvReac Type Severity Reaction Status Date / Time No Known Allergies Allergy Verified 08/21/16 20:40 PMH/Surg Hx/FS Hx/Imm Hx Previously Healthy: No Endocrine/Hematology History: Reports: Hx Diabetes - Type 1, insulin pump removed Denies: Hx Anticoagulant Therapy, Hx Thyroid Disease Cardiovascular History: Denies: Hx Congestive Heart Failure, Hx Deep Vein Thrombosis, Hx Hypertension , Hx Myocardial Infarction, Hx Pacemaker/ICD, Hx Peripheral Vascular Disease Respiratory History: Denies: Hx Asthma, Hx Chronic Obstructive Pulmonary Disease (COPD), Hx Lung Cancer, Hx Pneumonia, Hx Pulmonary Embolism GI History: Denies: Hx Gall Bladder Disease, Hx Gastrointestinal Bleed, Hx Ulcer, Hx Urosepsis History: Denies: Hx Kidney Stones, Hx Renal Disease Musculoskeletal History: Reports: Hx Back Problems Denies: Hx Arthritis, Hx Osteoporosis Sensory History: Reports: Hx Contacts or Glasses - driving /reading Denies: Hx Cataracts, Hx Glaucoma, Hx Hearing Aid Opthamlomology History: Reports: Hx Contacts or Glasses - driving /reading Denies: Hx Cataracts, Hx Glaucoma Neurological History: Reports: Hx Headaches Denies: Hx Dementia, Hx Migraine, Hx Seizures, Hx Transient Ischemic Attacks (TIA) Psychiatric History: Reports: Hx Anxiety, Hx Depression, Hx Inpatient Treatment , Hx Community Mental Health Tx, Hx Bipolar Disorder, Hx Suicide Attempt, Hx Substance Abuse Denies: Hx Attention Deficit Hyperactivity Disorder, Hx Eating Disorder, Hx Panic Disorder, Hx Post Traumatic Stress Disorder, Hx Schizophrenia, Hx of Violent Episodes Against Others, Other Psychiatric Issues/Disorders - Surgical History Surgery Procedure, Year, and Place: abscess drained under general anesthesia - Immunization History Date of Tetanus Vaccine: unknown Infectious Disease History: No Infectious Disease History: Denies: Hx Clostridium Difficile, Hx Hepatitis, Hx Human Immunodeficiency Virus (HIV), Hx of Known/Suspected MRSA, Hx Shingles, Hx Tuberculosis, Hx Known/ Suspected VRE, Hx Known/Suspected VRSA, History Other Infectious Disease, Traveled Outside the [place] in Last 30 Days - Family History Known Family History: Positive: Other Negative: Cardiac Disease, Hypertension Family History: Schizophrenia, anxiety, and EtOH dependence - Social History Occupation: Unemployed Lives: Alone Alcohol Use: Rare Alcohol Amount: had approx 6 drinks last night Hx Substance Use: Yes Substance Use Type: Reports: Sedatives, Tranquilizers Substance Use Comment - Amount & Last Used: Benzo's Hx Tobacco Use: Yes Smoking Status (MU): Current Every Day Smoker Type: Cigarettes Amount Used/How Often: 1/2 PPD Length of Time of Smoking/Using Tobacco: 13 years Have You Smoked in the Last Year: Yes Review of Systems Negative: Fever Psychological: Other - pos: SI Positive: Depressed All Other Systems Reviewed And Are Negative: Yes Physical Exam Triage Information Reviewed: Yes Vital Signs On Initial Exam: Initial Vitals Temp Pulse Resp BP Pulse Ox 98 F 124 18 133/91 98 09/29/16 22:53 09/29/16 22:53 09/29/16 22:53 09/29/16 22:53 09/29/16 22:53 Vital Signs Reviewed: Yes Appearance: Positive: Well-Appearing, No Pain Distress Skin: Positive: Warm Head/Face: Positive: Normal Head/Face Inspection Eyes: Positive: DILLON ENT: Positive: Normal ENT inspection Neck: Positive: Supple Respiratory/Lung Sounds: Positive: Breath Sounds Present Cardiovascular: Positive: RRR Abdomen Description: Positive: Nontender, Soft Bowel Sounds: Positive: Present Musculoskeletal: Positive: Strength/ROM Intact Neurological: Positive: Alert, Oriented to Person Place, Time Psychiatric: Positive: Affect/Mood Appropriate Diagnostics - Vital Signs Vital Signs Temp Pulse Resp BP Pulse Ox 09/29/16 22:53 98 F 124 18 133/91 98 - Laboratory Lab Results: Lab Results 09/29/16 09/29/16 Range/Units 23:03 23:03 Urine Color Yellow Urine Appearance Cloudy Urine pH 6.0 (5-9) Ur Specific [place] 1.024 (1.010-1.030) Urine Protein 1+(30 mg/dl) H (Negative) Urine Ketones Trace H (Negative) Urine Blood Negative (Negative) Urine Nitrate Negative (Negative) Urine Bilirubin Negative (Negative) Urine Urobilinogen Negative (Negative) Ur Leukocyte Esterase 3+ H (Negative) Urine WBC (Auto) 1+(6-10/hpf) H (Absent) Urine RBC (Auto) 1+(3-5/hpf) H (Absent) Ur Squamous Epith Cells Present H (Absent) Urine Bacteria Absent (Absent) Urine Glucose 2+(150 mg/dl) H (Negative) Urine Opiates Screen None detected (None Detect) Ur Barbiturates Screen None detected (None Detect) Ur Phencyclidine Scrn None detected (None Detect) Ur Amphetamines Screen None detected (None Detect) U Benzodiazepines Scrn None detected (None Detect) Urine Cocaine Screen None detected (None Detect) U Cannabinoids Screen None detected (None Detect) Result Diagrams: 09/29/16 23:55 09/29/16 23:55 Lab Statement: Any lab studies that have been ordered have been reviewed, and results considered in the medical decision making process. Course/Dx - Course Course Of Treatment: Pt is a 31 y/o F with SI since yesterday. Pt states she's had SI before with no attempts. Toxicology is negative. UA results show 1+ protein, 1+ WBCs, 1+ RBCs, trace ketones, 3+ leuk, and 2+ glucose. Pt is clear for MHE at 0115. - Differential Dx/Clinical Impression Provider Diagnosis: Suicidal ideation - Physician Notifications Instructed by Provider To: Admit As Inpatient Discharge - Discharge Plan Condition: Fair Disposition: ADMITTED TO [facility] The documentation as recorded by the Nikita kang SooYoung accurately reflects the service I personally performed and the decisions made by me, Damion Hernandez MD.
[2016-09-30 00:18] LABS: Hematocrit 49 % (35-47); Mean Corpuscular HGB Conc 35 g/dl (31-36); Mean Corpuscular Hemoglobin 32 pg (27-31); Mean Corpuscular Volume 91 fL (80-97); Red Cell Distribution Width 13 % (10.5-15); White Blood Count 12.7 10^3/ul (3.5-10.8)
[2016-09-30 00:19] LABS: Add Diff/Slide Review? Slide Review Added; Comments Flag Yes
[2016-09-30 00:25] LABS: ALT 9 U/L (7-52); AST 15 U/L (13-39); Albumin 4.3 g/dL (3.2-5.2); Alkaline Phosphatase 105 U/L (34-104); Anion Gap 8 mmol/L (2-11); BUN/Creatinine Ratio 27.4 (8-20); Blood Urea Nitrogen 17 mg/dL (6-24); CO2 Carbon Dioxide 22 mmol/L (22-32); Calcium 9.7 mg/dL (8.6-10.3); Chloride 105 mmol/L (101-111); EGFR African American 145.4 (>60); Globulin 2.8 g/dL (2-4); Glucose 88 mg/dL (70-100); Potassium 3.5 mmol/L (3.5-5.0); Sodium 135 mmol/L (133-145); Total Protein 7.1 g/dL (6.4-8.9)
[2016-09-30 01:02] LABS: Acetaminophen < 15 mcg/mL; Alcohol < 10 mg/dL (<10); Salicylate < 2.50 mg/dL (<30)
[2016-09-30 01:13] LABS: TSH (Thyroid Stimulating Horm) 4.36 mcIU/mL (0.34-5.60)
[2016-09-30] MEDS ORDERED: Nicotine GUM* 2 MG PO PRN (05:32)
[2016-09-30] MEDS ORDERED: Al Hydrox/Mg Hydrox/Simet LIQ* 30 ML UDC PO PRN (05:32)
[2016-09-30] MEDS ORDERED: Nicotine Inhaler* 10 MG AMP INH PRN (05:32)
[2016-09-30] MEDS ORDERED: Mouth Piece, Nicotine* 1 EACH CARTRIDGE INH SCH (05:32)
[2016-09-30] MEDS: BuPROPion XL* 150 MG TAB.XL PO SCH (09:43)
[2016-09-30] MEDS: Lithium Carbonate TAB* 300 MG PO SCH ×3 (09:43→20:22)
[2016-09-30] MEDS: FLUoxetine CAP* 20 MG PO SCH ×2 (09:44→09:46)
[2016-09-30] MEDS: Vitamin THERAPEUTIC TAB PO SCH (09:47)
[2016-09-30] MEDS: Acetaminophen TAB* 325 MG PO PRN ×2 (11:01→19:11)
--- NOTE | 2016-09-30 17:11 | HP ---
Amended report to enter cosignature on report. INITIAL PSYCHIATRIC ASSESSMENT: The supervising psychiatrist for this assessment is Dr. Haley. DATE OF ADMISSION: 09/30/16 IDENTIFYING INFORMATION: The patient is a 31-year-old white female admitted to this facility on 09/30/16. Admitting status is voluntary. The patient was seen and examined. The chart was reviewed and the case was discussed with clinical staff available at the time of the visit. CHIEF COMPLAINT/REASON FOR ADMISSION: The patient states, "I have suicidal thoughts." HISTORY OF PRESENT ILLNESS: The patient reports that she has been having suicidal thoughts on and off for years. She reports, however, that things got bad over the course of the last day to day and a half, which resulted in her coming to the emergency room. She states that she was planning; however, did not execute any of her plans for suicide. During today's clinical interview, the patient was unable to identify any predisposing factors that had exacerbated her depression to the point of suicidal thoughts. She did, however , acknowledge that she has been having panic attacks. She reports that she has had several this week; however, they are not coming with any great frequency, but she does report that she does have panic attacks coupled with her anxiety. PAST MEDICAL HISTORY: Includes type 1 diabetes. She does use an insulin pump. She was treated at the hospital approximately 1 month ago for DKA. PAST PSYCHIATRIC HISTORY: This is the patient's 8th psychiatric admission. Her last visit here was in June 2016. She does receive outpatient care at [facility] where she sees a therapist, Pauly Eli. She attends DBT group at that clinic. Her medications are managed by Dr. Khurram Knight. She does report that Dr. Knight took her off fluoxetine; however, she stopped taking her lithium. She also was using olanzapine at bedtime and Xanax 1 mg 3 times a day as well as history of using Adderall for ADHD. MEDICATIONS HISTORY: The patient reports she has tried multiple medications in the past including Lamictal, Depakote, Latuda, Abilify, Remeron and nortriptyline. She states "nothing was ever effective for me." She does have a history of 3 to 4 previous suicide attempts by overdose on prescription medications. She does have a history of self-injurious behavior in her teen years. No history of violence is noted. ALLERGIES: The patient has no known allergies. SUBSTANCE USE HISTORY: The patient rarely drinks. Denies any illicit drug use or abuse. FAMILY PSYCHIATRIC HISTORY: Per chart review, the patient's father has a history of alcohol use disorder. Maternal uncle has schizophrenia. No history of completed family suicide. PSYCHOSOCIAL HISTORY: The patient currently lives with her fianceYohan, of 13 years. She has an 8-year-old daughter. 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 REVIEW OF SYSTEMS: General: The patient denies fever, chills, night sweats. Sleep: The patient reports she does have trouble falling asleep and staying asleep. She reports trazodone has helped in the past with this. She is currently reporting poor appetite and poor energy. HEENT: She denies any recent changes in hearing or vision. Denies difficulty chewing or swallowing. Cardiovascular: She does report that she does occasionally have a racing heart associated with anxiety/panic attacks. Similarly, she reports occasional chest pain and shortness of breath secondary to panic attacks. However, at this time , she is denying either of these symptoms. Gastrointestinal: The patient denies abdominal pain, nausea, vomiting or diarrhea. Genitourinary/Reproductive : She denies any issues. Neurologic: She denies any issues. Musculoskeletal: She is denying muscle or joint pain. Endocrine: She does have type 1 diabetes. Hematopoietic/Lymphatic: She denies any issues. REVIEW OF SYSTEMS: Review of laboratory data undertaken at this time. The following abnormals are noted. White blood cell count is elevated at 12.7, hemoglobin is elevated at 17, hematocrit is elevated at 49, MCH is elevated at 32. Lymphocyte percentage is 21. Absolute neutrophils elevated at 8.6, absolute monos elevated at 1.1. Chemistry studies reveal an elevated BUN to creatinine ratio of 27.4. Her glucose is 152. Alkaline phosphatase elevated at 105. Urine protein is 1+. Urine ketones trace. Urine leukocyte esterase is 3+. Urine white blood cell count 1+. Urine rbc's 1+. Squamous epithelial cells were present as well as urine glucose. Urine toxicology was unremarkable. PHYSICAL EXAMINATION GENERAL APPEARANCE: The patient is well developed, well nourished, alert, and cooperative and appears to be in no acute distress. VITAL SIGNS: Cardiac rate is 87, blood pressure 113/73. HEENT: Head is normocephalic, atraumatic. NECK: Appears normal on inspection. RESPIRATORY: Lungs clear in all castellano. ABDOMEN: Symmetrical without distention or guarding. Bowel sounds are active in all quadrants. MUSCULOSKELETAL: The patient demonstrates full range of motion. NEUROLOGIC: The patient is alert and oriented x3 with no focal neuro deficits. SKIN: Intact. Warm and dry. MENTAL STATUS EXAM: The patient is of healthy build and appears her stated age with good grooming and hygiene noted. On gross examination, she appears to have no physical deformities. Her hair is dyed purple. Attitude toward the examiner was passively cooperative. She did not appear to be demonstrating any noteworthy mannerisms, gestures, or tics. No hand or circumoral tremor were appreciated. The activity level was within normal limits with no evidence of psychomotor excitation or retardation appreciated. The patient was alert, oriented, person, place, time, or event. Speech was clear, coherent, goal directed, and spontaneous. Self- reported mood was both depressed and anxious. The patient rates her depression severity as a 10/10 on the 1 to 10 scale, in which 10 represents the most depressed she has ever felt. Similarly, she is rating her anxiety as 9/10 on the 1 to 10 scale, in which 10 represents the most anxious she has ever felt. She is currently denying visual or auditory hallucinations. No delusional or paranoid thought processes were readily appreciated. Judgment and insight appear grossly intact. Impulse control also appears grossly intact, as does concentration and attention. She is currently acknowledging passive suicidal ideation, but is future oriented. CLINICAL IMPRESSION: The patient is a 31-year-old white female with an extensive history of inpatient psychiatric hospitalization and borderline personality disorder, who presented to [facility] with suicidal ideation. She was admitted under voluntary status for symptom stabilization. ADMITTING DIAGNOSES: Bipolar 2 disorder, current phase depressed without psychotic features and borderline personality disorder by history, rule out generalized anxiety disorder, rule out panic disorder. PLAN OF TREATMENT: Admit to the behavioral services unit. Diet will be diabetic. Vital signs per unit protocol. Activity as tolerated with restrictions to the unit. The patient will participate in treatment planning activities, individual, group, and milieu therapy as well as medication management sessions and discharge planning until she is stable or referred to a higher level of care. TREATMENT GOAL: Stabilization. PROGNOSIS: Fair. ESTIMATED LENGTH OF STAY: 7 to 10 days. DISCHARGE CRITERIA: The patient will be discharged when she is no longer a risk to herself or others and has met the criteria set forth by the treatment team for discharge. This case was reviewed and discussed with Dr. Vail who concurred with the assessment, clinical impression, and initial plan of care. RUSS COTA, [employer] [id number]/CPS #: [id number] ANNIE
[2016-09-30] MEDS: OLANzapine TAB* 10 MG PO SCH (20:23)
[2016-09-30] MEDS: traZODone TAB* 50 MG TAB PO SCH (22:40)
[2016-10-01] MEDS: BuPROPion XL* 150 MG TAB.XL PO SCH (09:44)
[2016-10-01] MEDS: Lithium Carbonate TAB* 300 MG PO SCH ×2 (09:45→21:03)
[2016-10-01] MEDS: FLUoxetine CAP* 20 MG PO SCH (09:46)
[2016-10-01] MEDS: Vitamin THERAPEUTIC TAB PO SCH (09:46)
--- NOTE | 2016-10-01 12:22 | PN ---
Subjective - Subjective Service Type: 18554 Hosp care 15 min low complexity Subjective: Bisi reports 'bad' mood with continued SI to OD that she says she might act on if discharged today. She reports that her chest hurts with anxiety from time to time, a chronic familiar pain. She agrees to let us know of any change in this pain that might be concerning for a cardiac event. Objective - Appearance Appearance: Well Developed/Nourished Dysmorphic Features: No Hygiene: Normal Grooming: Disheveled - Behavior Psychomotor Activities: Abnormal-Decreased Exhibits Abnormal Movement: No - Attitude and Relatedness Attitude and Relatedness: Cooperative Eye Contact: Fair - Speech Quality: Unpressured Latencies: Normal Quantity: Appropriate - Mood Patient's Decription of Mood: "Bad" - Affect Observed Affect: Depressed Affect Consistent with: Dysphoria - Thought Process Patient's Thought Process: Coherent, Goal Directed Thought Content: Yes Passive Wish, Yes Suicidal Planning - but to OD, would not do it here, No Homicidal Ideation, No Paranoid Ideation - Sensorium Experiencing Hallucinations: No, Sensorium is Clear Type of Hallucinations: Visual: No, Auditory: No, Command: No - Impulse Control Impulse Control: Intact - Insight and Judgement Insight and Judgement: Fair - Group Participation Particating in Group Activities: No - Medication Management Medication Management Adherence: Yes Assessment - Assessment Merits Inpatient Hospitalization: For Immediate Safety, For Stabilization, For Ongoing Evaluation, For Discharge Planning, Pending Safe DC Plan Inpatient DSM-IV Dx: Bipolar Affective Disorder, Type 2, MRE depressed. Borderline Personality Disorder. Rule out ADAM, panic disorder Clinical Impression: Mouna Gallegos is a 31-year-old female admitted for safety concerns raised by report of suicidal ideation with plan to overdose on medications. She cites recent panic attacks as possible concommitant versus causal symptom related to her suicidality, and cannot state other triggers to suicidality increased over 36 hours prior to admission. She has type 1 diabetes using insulin pump. 5. Reports continued anticipation of active SI to OD if discharged today, with bad mood. CFS on unit. Plan - Plan Treatment Plan: Name: MOUNA GALLEGOS Birthdate: 1985 [id number] Continue current meds. Monitor MS and safety. Encourage groups/milieu. Plan for discharge per hospital course. Continued Medication Management: Continue Outpt Medication Medications: Current Medications Acetaminophen (Tylenol Tab*) 650 mg PO Q4H PRN PRN Reason: PAIN or TEMP > 101 F Last Admin: 09/30/16 19:11 Dose: 650 mg Al Hydrox/Mg Hydrox/Simethicone (Maalox Plus*) 30 ml PO Q4H PRN PRN Reason: INDIGESTION Bupropion HCl (Wellbutrin Xl *) 150 mg PO DAILY [facility] Last Admin: 10/01/16 09:44 Dose: 150 mg Device (Nicotine Mouth Piece*) 1 each INH .CARTRIDGE [facility] Fluoxetine HCl (Prozac Cap*) 20 mg PO DAILY [facility] Last Admin: 10/01/16 09:46 Dose: 20 mg [place] Carbonate ([place] Carbonate Tab*) 450 mg PO DAILY [facility] Last Admin: 10/01/16 09:45 Dose: 450 mg [place] Carbonate ([place] Carbonate Tab*) 600 mg PO BEDTIME [facility] Last Admin: 09/30/16 20:22 Dose: 600 mg Multivitamins (Theragran Tab*) 1 tab PO DAILY [facility] Last Admin: 10/01/16 09:46 Dose: 1 tab Nicotine (Nicotine Inhaler*) 10 mg INH Q2H PRN PRN Reason: CRAVING Nicotine Polacrilex (Nicotine Gum*) 2 mg PO Q2H PRN PRN Reason: CRAVING Olanzapine (Zyprexa Tab*) 10 mg PO BEDTIME [facility] Last Admin: 09/30/16 20:23 Dose: 10 mg Trazodone HCl (Desyrel Tab*) 50 mg PO BEDTIME [facility] Last Admin: 09/30/16 22:40 Dose: 50 mg - Discharge Plan Discharge Plan: Outpatient Follow Up
[2016-10-01] MEDS: Acetaminophen TAB* 325 MG PO PRN ×2 (17:08→21:04)
[2016-10-01] MEDS: traZODone TAB* 50 MG TAB PO SCH (21:03)
[2016-10-01] MEDS: OLANzapine TAB* 10 MG PO SCH (21:03)
[2016-10-02] MEDS: Acetaminophen TAB* 325 MG PO PRN ×4 (05:22→20:11)
[2016-10-02] MEDS: Lithium Carbonate TAB* 300 MG PO SCH ×2 (08:41→21:15)
[2016-10-02] MEDS: Vitamin THERAPEUTIC TAB PO SCH (08:41)
[2016-10-02] MEDS: BuPROPion XL* 150 MG TAB.XL PO SCH (08:41)
[2016-10-02] MEDS: FLUoxetine CAP* 20 MG PO SCH (08:41)
[2016-10-02] MEDS ORDERED: [UNRECOGNIZED DRUG - OTHER] SUBCUT SCH (10:00)
[2016-10-02] MEDS ORDERED: INSULIN LISPRO SUBCUT SCH (10:00)
--- NOTE | 2016-10-02 14:26 | PN ---
Subjective - Subjective Service Type: 78414 Hosp care 15 min low complexity Subjective: Mouna was sullen and had few spontaneous comments, making terse answers to my questions. She reports some progress here, denies active plans to harm self, and notes low levels of emotional pain and anxiety. Says she feels pretty "blah" or neutral. She says she'd like to plan discharge in the coming days and doesn't see much benefit from admission. She was a bit dismissive of psychotherapy's usefulness and focuses on medications. She is asking for pills to feel better. We reviewed her list of prior medication trials and she said nothing has helped. I set conservative expectations around a "magic bullet" of a medicine that would be dramatically different. She reports inconsistent adherence and recent changes around a regimen of Zyprexa, [place], and Prozac, and while she was skeptical it would really help her I advised to continue it now and avoid multiple changes and polypharmacy to the extent possible. Objective - Appearance Appearance: Well Developed/Nourished Hygiene: Normal Grooming: Well Kept - Behavior Psychomotor Activities: Normal Exhibits Abnormal Movement: No - Attitude and Relatedness Attitude and Relatedness: Minimally Cooperative Eye Contact: Fair - Speech Quality: Unpressured Latencies: Normal Quantity: Terse - Mood Patient's Decription of Mood: neutral - Affect Observed Affect: Non-labile Affect Consistent with: Dysphoria - mild - Thought Process Patient's Thought Process: Coherent Thought Content: No Passive Wish, No Suicidal Planning, No Homicidal Ideation, No Paranoid Ideation - Sensorium Experiencing Hallucinations: No, Sensorium is Clear - Level of Consciousness Level of Consciousness: Alert - Impulse Control Impulse Control: Intact - Insight and Judgement Insight and Judgement: Fair Assessment - Assessment Merits Inpatient Hospitalization: For Stabilization, To Initiate Treatment, For Ongoing Evaluation, Consolidate Improvements, For Discharge Planning Inpatient DSM-IV Dx: Mood diosrder not otherwise specified. Borderline Personality Disorder. Rule out ADAM, panic disorder Clinical Impression: 31 y/o female with a history of depression, substance use disorder, multiple suicide attempts, self-injury, trauma, and multiple psychiatric hospitalizations. She was admitted after coming to the ED by car - concern centered on depressive symptoms and suicidal thoughts. Stabilizing here. Continues dysphoric and sullen. She is safe on checks, but reported ongoing suicidal ideation 10/01 with some expectation of acting on it outside this setting. Her clinical alliance is generally poor, presenting withdrawn and is sullen, passive on interview, help rejecting around therapies and coping, and focused on medications. This pattern limits anticipated yield of hospitalizations in her case. Medmgt. is with [place], Prozac, Zyprexa. We should avoid medicines of high abuse potential. Plan - Plan Treatment Plan: Name: MOUNA RILEY Birthdate: 1985 [id number] Medications: Current Medications Acetaminophen (Tylenol Tab*) 650 mg PO Q4H PRN PRN Reason: PAIN or TEMP > 101 F Last Admin: 10/02/16 11:58 Dose: 650 mg Al Hydrox/Mg Hydrox/Simethicone (Maalox Plus*) 30 ml PO Q4H PRN PRN Reason: INDIGESTION Bupropion HCl (Wellbutrin Xl *) 150 mg PO DAILY [facility] Last Admin: 10/02/16 08:41 Dose: 150 mg Device (Nicotine Mouth Piece*) 1 each INH .[place]TR[place]GE [facility] Fluoxetine HCl (Prozac Cap*) 20 mg PO DAILY [facility] Last Admin: 10/02/16 08:41 Dose: 20 mg [place] Carbonate ([place] Carbonate Tab*) 450 mg PO DAILY [facility] Last Admin: 10/02/16 08:41 Dose: 450 mg [place] Carbonate ([place] Carbonate Tab*) 600 mg PO BEDTIME [facility] Last Admin: 10/01/16 21:03 Dose: 600 mg Multivitamins (Theragran Tab*) 1 tab PO DAILY [facility] Last Admin: 10/02/16 08:41 Dose: 1 tab Nicotine (Nicotine Inhaler*) 10 mg INH Q2H PRN PRN Reason: CRAVING Nicotine Polacrilex (Nicotine Gum*) 2 mg PO Q2H PRN PRN Reason: CRAVING Pto: Patients Own Insulin Pump Unitlizing Humalog 100 U/Ml 1 dose SUBCUT .PER PUMP PARAMETERS [facility] Olanzapine (Zyprexa Tab*) 10 mg PO BEDTIME [facility] Last Admin: 10/01/16 21:03 Dose: 10 mg Trazodone HCl (Desyrel Tab*) 50 mg PO BEDTIME [facility] Last Admin: 10/01/16 21:03 Dose: 50 mg - Discharge Plan Discharge Plan: Outpatient Follow Up
[2016-10-02] MEDS: OLANzapine TAB* 10 MG PO SCH (21:14)
[2016-10-02] MEDS: traZODone TAB* 50 MG TAB PO SCH (21:14)
[2016-10-03] MEDS: FLUoxetine CAP* 20 MG PO SCH (10:11)
[2016-10-03] MEDS: Lithium Carbonate TAB* 300 MG PO SCH ×2 (10:11→20:57)
[2016-10-03] MEDS: Vitamin THERAPEUTIC TAB PO SCH (10:11)
--- NOTE | 2016-10-03 11:24 | PN ---
Subjective - Subjective Subjective: Mouna firmly declined to speak with me. She did respond to inquiry as to any needs or concerns and she denied them. Case was discussed in treatment team. Objective - Appearance Appearance: Well Developed/Nourished Hygiene: Normal Grooming: Fairly Well Kept - Behavior Psychomotor Activities: Abnormal-Decreased - Attitude and Relatedness Attitude and Relatedness: Minimally Cooperative Eye Contact: Fair - Speech Quality: Unpressured Latencies: Normal Quantity: Terse - Mood Patient's Decription of Mood: "Irritable" - Affect Observed Affect: Non-labile Affect Consistent with: Dysphoria - Thought Process Patient's Thought Process: Goal Directed, Impoverished - Level of Consciousness Level of Consciousness: Alert - Impulse Control Impulse Control: Intact - Insight and Judgement Insight and Judgement: Poor Assessment - Assessment Merits Inpatient Hospitalization: For Stabilization, To Initiate Treatment, For Ongoing Evaluation, Consolidate Improvements Inpatient DSM-IV Dx: Mood diosrder not otherwise specified. Borderline Personality Disorder. Rule out ADAM, panic disorder Clinical Impression: 31 y/o female with a history of depression, substance use disorder, multiple suicide attempts, self-injury, trauma, and multiple psychiatric hospitalizations. She was admitted after coming to the ED by car - concern centered on depressive symptoms and suicidal thoughts. Stabilizing here. Continues dysphoric and sullen, is superficial engaged clinically. She is safe on checks, but reported ongoing suicidal ideation 10/01 with some expectation of acting on it outside this setting. Her clinical alliance is generally poor, presenting withdrawn and is sullen, passive on interview, help rejecting around therapies and coping, and focused on medications. This pattern limits anticipated yield of hospitalizations in her case. Medmgt. is with [place], Prozac, Zyprexa. We should avoid medicines of high abuse potential. Plan - Plan Treatment Plan: Name: MOUNA RILEY Birthdate: 1985 [id number] Medications: Current Medications Acetaminophen (Tylenol Tab*) 650 mg PO Q4H PRN PRN Reason: PAIN or TEMP > 101 F Last Admin: 10/02/16 20:11 Dose: 650 mg Al Hydrox/Mg Hydrox/Simethicone (Maalox Plus*) 30 ml PO Q4H PRN PRN Reason: INDIGESTION Device (Nicotine Mouth Piece*) 1 each INH .[facility] Fluoxetine HCl (Prozac Cap*) 20 mg PO DAILY [facility] Last Admin: 10/03/16 10:11 Dose: Not Given [place] Carbonate ([place] Carbonate Tab*) 450 mg PO DAILY [facility] Last Admin: 10/03/16 10:11 Dose: Not Given [place] Carbonate ([place] Carbonate Tab*) 600 mg PO BEDTIME [facility] Last Admin: 10/02/16 21:15 Dose: 600 mg Multivitamins (Theragran Tab*) 1 tab PO DAILY [facility] Last Admin: 10/03/16 10:11 Dose: Not Given Nicotine (Nicotine Inhaler*) 10 mg INH Q2H PRN PRN Reason: CRAVING Nicotine Polacrilex (Nicotine Gum*) 2 mg PO Q2H PRN PRN Reason: CRAVING Pto: Patients Own Insulin Pump Unitlizing Humalog 100 U/Ml 1 dose SUBCUT .PER PUMP PARAMETERS [facility] Olanzapine (Zyprexa Tab*) 10 mg PO BEDTIME [facility] Last Admin: 10/02/16 21:14 Dose: 10 mg Trazodone HCl (Desyrel Tab*) 50 mg PO BEDTIME [facility] Last Admin: 10/02/16 21:14 Dose: 50 mg - Discharge Plan Discharge Plan: Outpatient Follow Up
[2016-10-03] MEDS: Acetaminophen TAB* 325 MG PO PRN ×3 (11:39→19:43)
[2016-10-03] MEDS: OLANzapine TAB* 10 MG PO SCH (20:56)
[2016-10-03] MEDS: traZODone TAB* 50 MG TAB PO SCH (20:56)
[2016-10-04] MEDS: Acetaminophen TAB* 325 MG PO PRN (08:41)
[2016-10-04 08:48] VITALS: BP 105/76
[2016-10-04] MEDS: Lithium Carbonate TAB* 300 MG PO SCH (09:23)
[2016-10-04] MEDS: FLUoxetine CAP* 20 MG PO SCH (09:23)
[2016-10-04] MEDS: Vitamin THERAPEUTIC TAB PO SCH (09:23)
--- NOTE | 2016-10-04 10:04 | DS ---
Subjective - Subjective Service Types: 42879 Hosp [place] Day Mgmt simple under 30 min Discharge Date: 10/04/16 Subjective: Monua agreed to meet with me and asked for release today. She reports feeling "fine" and noted improvement compared to at admission. She affirmed she is currently safe and denied active suicidal ideation. We reviewed her aftercare and medication plan. She made a firm decision to resume Wellbutrin monotherapy and declined further use of Prozac, [place] and Zyprexa. I accommodated it. Objective - Appearance Appearance: Well Developed/Nourished Hygiene: Normal Grooming: Well Kept - Behavior Psychomotor Activities: Normal - Attitude and Relatedness Attitude and Relatedness: Minimally Cooperative Eye Contact: Fair - Speech Quality: Unpressured Latencies: Normal Quantity: Terse - Mood Patient's Decription of Mood: "Fine" - Affect Observed Affect: Constricted Affect Consistent with: Dysphoria - Thought Process Patient's Thought Process: Coherent, Goal Directed, Impoverished Thought Content: No Passive Wish, No Suicidal Planning, No Homicidal Ideation, No Paranoid Ideation - Sensorium Experiencing Hallucinations: No, Sensorium is Clear - Level of Consciousness Level of Consciousness: Alert - Impulse Control Impulse Control: Intact - Insight and Judgement Insight and Judgement: Fair Treatment Course & Assessment Clinical Course & Impression: 31 y/o female with a history of depression, substance use disorder, multiple suicide attempts, self-injury, trauma, and multiple psychiatric hospitalizations. She was admitted after coming to the ED by car - concern centered on depressive symptoms and suicidal thoughts. Stabilizing here. Continues dysphoric and sullen, is superficial engaged clinically. She is safe on checks, but reported ongoing suicidal ideation 10/01 with some expectation of acting on it outside this setting. Her clinical alliance is generally poor, presenting withdrawn and is sullen, passive on interview, help rejecting around therapies and coping, and focused on medications. This pattern limits anticipated yield of hospitalizations in her case. She appeared brighter in interactions with peers than in clinical encounters. She was irritable at times, and had conflict with selected peers. Mededication management initially intended to use [place], Prozac, Zyprexa, Mouna eventually opted to go with Welbutrin mono-therapy going forward. We avoided the use of medicines of high abuse potential and did not provide Xanax which she had indicated as a home medication. Uncontrolled anxiety was not observed. She reasonably opts for release, her Yohan supported it in a call with [facility]. Yield of further care here is not expected, she is appropriate for outpatient care. Risk concern centered on suicide risk. Acute risk is assessed as acceptable for outpatient status - this is based on her benign observed behavior and ideation, the absence of impairment, and Mouna's lower symptom burden. Mouna is at high prison risk for suicide based on chronic risk factors including her conditions and history of repeated suicidal behavior. Clear for Discharge: Adequate Clinical Respons, Acceptable Safety Profile, Low Utility of Inpt Care Inpatient DSM-IV Dx: Mood diosrder not otherwise specified. Borderline Personality Disorder. Rule out ADAM, panic disorder Discharge Planning - Discharge Planning Discharge Plan: Outpatient Follow Up Outpatient [facility] Recommendations for Continuing Care: Medication Management, Psychotherapy, Substance Abuse Counseling Medications: Current Medications Bupropion HCl (Wellbutrin Xl *) 300 mg PO DAILY [facility] PRN Reason: Protocol Nicotine (Nicotine Inhaler*) 10 mg INH Q2H PRN PRN Reason: CRAVING Discharge Planning: Prescriptions provided for discharge [x] Yes [] No Follow up care details as per social work arrangements. Patient response to discharge plan: [x] eager for discharge [] agreeable with discharge plan [] ambivalent about discharge [] disagrees with discharge today
[2016-10-04] MEDS ORDERED: BuPROPion XL* 300 MG TAB.XL PO SCH (11:00)
== END 2016-10-04 11:20 | disposition home or self-care (01) | DRG 753 ==
LOC: ED 22:42 → BSU 09-30 04:29
PROVIDERS: ADMIT Psychiatry & Neurology Psychiatry; ATTEND Psychiatry & Neurology Psychiatry
DX: F39 Unspecified mood [affective] disorder (principal); E10.9 Type 1 diabetes mellitus without complications; Z91.5 Personal history of self-harm; F60.3 Borderline personality disorder; F41.1 Generalized anxiety disorder; F41.0 Panic disorder [episodic paroxysmal anxiety]; Z96.41 Presence of insulin pump (external) (internal); F90.9 Attention-deficit hyperactivity disorder, unspecified type; F31.9 Bipolar disorder, unspecified; F17.210 Nicotine dependence, cigarettes, uncomplicated; Z81.1 Family history of alcohol abuse and dependence; Z81.8 Family history of other mental and behavioral disorders
CPT/HCPCS: 36415; 80053; 80307; 80320; 80329; 81003; 81015; 84443; 85025; 87086; 99222; 99231; 99238; A9270-GY; G0480

== ENCOUNTER 2016-10-28 20:50 | Emergency (ER) | payer MEDICARE, MEDICAID ==
--- NOTE | 2016-10-28 21:36 | UC ---
Shortness of Breath HPI - HPI Summary HPI Summary: 31 YO TYPE I DIABETIC WITH WEAKNESS/FAINTNESS X 2 DAYS BLOOD SUGAR DIFFICULT TO CONTROL NOW SOB NO CP NO N/V/D NO F/C NO COUGH - History of Current Complaint Chief Complaint: UCDizziness Stated Complaint: SOB,DIZZY,DIABETIC LEVELS OFF Time Seen by Provider: 10/28/16 21:16 Hx Obtained From: Patient Hx Last Menstrual Period: IUD Onset/Duration: Gradual Onset, Lasting Hours Timing: Constant Current Severity: Moderate Dyspnea At: Rest Alleviating Factors: Nothing Associated Signs & Symptoms: Positive: Dizzy - Allergy/Home Medications Allergies/Adverse Reactions: Allergies Allergy/AdvReac Type Severity Reaction Status Date / Time No Known Allergies Allergy Verified 10/28/16 20:55 Home Medications: Home Medications ALPRAZolam TAB* [Xanax TAB*] 0.5 mg PO PRN 10/28/16 [History] Amphetamine MIXED SALTS TAB* [Adderall TAB*] 15 mg PO 10/28/16 [History Confirmed 10/28/16] Brexpiprazole (NF) [Rexulti 3 mg tab (NF)] 2 mg PO 10/28/16 [History] FLUoxetine CAP* [PROzac CAP*] 40 mg PO DAILY 10/28/16 [History Confirmed ] Insulin Aspart [Novolog] SUBCUT 10/28/16 [History] traZODone TAB* [Desyrel TAB*] 150 mg PO 10/28/16 [History] PMH/Surg Hx/FS Hx/Imm Hx Endocrine History: Diabetes Other History Of: Negative For: HIV, Hepatitis B, Hepatitis C, Anticoagulant Therapy - Surgical History Surgical History: Yes Surgery Procedure, Year, and Place: abscess drained under general anesthesia - Family History Known Family History: Positive: None, Other Negative: Cardiac Disease, Hypertension, Diabetes Family History: Schizophrenia, anxiety, and EtOH dependence - Social History Alcohol Use: Rare Alcohol Amount: had approx 6 drinks last night Substance Use Type: None Substance Use Comment - Amount & Last Used: Benzo's Smoking Status (MU): Current Every Day Smoker Type: Cigarettes Amount Used/How Often: 2 PACKS/WEEK Length of Time of Smoking/Using Tobacco: 13 years Have You Smoked in the Last Year: Yes Household Exposure Type: Cigarettes - Immunization History Most Recent Influenza Vaccination: 2011 Most Recent Tetanus Shot: "few years ago" Most Recent Pneumonia Vaccination: unknown Review of Systems Constitutional: Fatigue Skin: Negative Eyes: Negative ENT: Negative Respiratory: Shortness Of Breath Cardiovascular: Negative Gastrointestinal: Negative Genitourinary: Negative Motor: Negative Neurovascular: Negative Musculoskeletal: Negative Neurological: Negative Psychological: Negative All Other Systems Reviewed And Are Negative: Yes Physical Exam Triage Information Reviewed: Yes Appearance: Well-Appearing, No Pain Distress, Well-Nourished Vital Signs: Initial Vital Signs Temp 97.9 F 10/28/16 20:51 Pulse 136 10/28/16 20:51 Resp 16 10/28/16 20:51 BP 131/82 10/28/16 20:51 Pulse Ox 98 10/28/16 20:51 Vital Signs Reviewed: Yes Eyes: Positive: Conjunctiva Clear ENT: Positive: Normal ENT inspection, Hearing grossly normal, Pharynx normal, TMs normal Dental: Negative: Abscess @ Neck: Positive: Supple, Nontender, No Lymphadenopathy Respiratory: Positive: Lungs clear, Normal breath sounds, No respiratory distress, No accessory muscle use Cardiovascular: Positive: RRR, No Murmur Abdomen Description: Positive: Nontender, No Organomegaly, Soft. Negative: CVA Tenderness (R), CVA Tenderness (L) Musculoskeletal: Positive: Strength Intact, ROM Intact Neurological: Positive: Alert, Muscle Tone Normal Psychological Exam: Normal Skin Exam: Normal Diagnostics - EKG Cardiac Rate: Tachycardia Cardiac Rhythm: Sinus: Normal Ectopy: None ST Segment: Normal - PROLONG QT Shortness of Breath Dx - Course Course Of Treatment: PT REFUSED EMS TRANSFER. D/W ER ATTENDING (DR PATEL) ACCEPTS PT - Differential Dx/Diagnosis Provider Diagnoses: WEAKNESS OF UNCERTAIN CAUSE. DYSPNEA OF UNCERTAIN CAUSE. TACHYCARDIA Discharge - Discharge Plan Condition: Fair Disposition: AGAINST MEDICAL ADVICE
--- NOTE | 2016-10-28 21:54 | RAD ---
INDICATION: Dyspnea and weakness. COMPARISON: Comparison is made with a prior chest x-ray study from August 21, 2016. TECHNIQUE: Dual-energy PA and lateral views of the chest were obtained. FINDINGS: The heart is within normal limits in size. Mediastinal and hilar contours appear within normal limits. The lungs are clear. No pleural effusion is present. IMPRESSION: NO EVIDENCE FOR ACTIVE CARDIOPULMONARY DISEASE.
[2016-10-28 22:12] VITALS: BP 142/84
== END 2016-10-28 22:17 | disposition left against medical advice (07) ==
LOC: UCEAST 20:50
DX: R53.1 Weakness (principal); R06.00 Dyspnea, unspecified; R00.0 Tachycardia, unspecified; R42 Dizziness and giddiness; R53.83 Other fatigue; E10.9 Type 1 diabetes mellitus without complications; Z79.4 Long term (current) use of insulin; F17.210 Nicotine dependence, cigarettes, uncomplicated
CPT/HCPCS: 71020; 93005; 99212; G0463

== ENCOUNTER 2016-10-28 22:31 | Emergency (ER) | payer MEDICARE, MEDICAID ==
[2016-10-28] MEDS ORDERED: NS 0.9% 1000 ML* 1,000 ML IV ONE (22:55)
[2016-10-28] MEDS ORDERED: Insulin REGULAR(*) 1 UNITS UNIT SUBCUT ONE (22:55)
[2016-10-28 23:15] LABS: Hematocrit 46 % (35-47); Hemoglobin 15.6 g/dl (12.0-16.0); Mean Corpuscular HGB Conc 34 g/dl (31-36); Mean Corpuscular Hemoglobin 33 pg (27-31); Mean Corpuscular Volume 97 fL (80-97); Mean Platelet Volume 8 um3 (7.4-10.4); Red Blood Count 4.77 10^6/ul (4.0-5.4); Red Cell Distribution Width 13 % (10.5-15); White Blood Count 7.4 10^3/ul (3.5-10.8)
[2016-10-28 23:19] LABS: Urine Bilirubin Negative (Negative); Urine Glucose 3+(>=500 mg/dL) (Negative); Urine Nitrite Negative (Negative)
[2016-10-28 23:32] LABS: ALT 11 U/L (7-52); AST 14 U/L (13-39); Albumin 4.3 g/dL (3.2-5.2); Alkaline Phosphatase 114 U/L (34-104); Anion Gap 16 mmol/L (2-11); BUN/Creatinine Ratio 14.4 (8-20); Blood Urea Nitrogen 13 mg/dL (6-24); CO2 Carbon Dioxide 15 mmol/L (22-32); Calcium 8.8 mg/dL (8.6-10.3); Chloride 99 mmol/L (101-111); EGFR African American 94.5 (>60); EGFR Non-African American 73.5 (>60); Glucose 294 mg/dL (70-100); Magnesium 1.7 mg/dL (1.9-2.7); Potassium 3.7 mmol/L (3.5-5.0); Sodium 130 mmol/L (133-145); Total Protein 7.3 g/dL (6.4-8.9)
--- NOTE | 2016-10-28 23:47 | ED ---
Maricruz Person Edward, scribed for Damion Hernandez MD on 10/28/16 at 2302 . HPI Diabetic - HPI Summary HPI Summary: 31 y/o female presents to ED c/o sudden change in diabetic levels yesterday. Patient is a type I diabetic. Per nurse's report, the patient reports blood glucose in the 300s today, with a high at 426 and a high of 594 yesterday. BG was 268 at [facility] today just before she came here today. She states her BG was 107 when she woke up this morning though. Pt states she's been taking insulin all day but it hasn't been helpling. Associated sx: patient feels dizzy and lightheaded when she stands up. Patient denies nausea, vomiting and fevers. No change in diet reported. - History Of Current Complaint Chief Complaint: EDDiabeticProb Time Seen by Provider: 10/28/16 22:48 Hx Obtained From: Patient Onset/Duration: Sudden Onset - Yesterday, Lasting Days Timing: Constant Associated Signs & Symptoms: Negative - Negative for nausea, vomiting, and fever Related History: DM I - Allergies/Home Medications Allergies/Adverse Reactions: Allergies Allergy/AdvReac Type Severity Reaction Status Date / Time No Known Allergies Allergy Verified 10/28/16 20:55 PMH/Surg Hx/FS Hx/Imm Hx Previously Healthy: No Endocrine/Hematology History: Reports: Hx Diabetes Denies: Hx Anticoagulant Therapy, Hx Thyroid Disease Cardiovascular History: Denies: Hx Congestive Heart Failure, Hx Deep Vein Thrombosis, Hx Hypertension , Hx Myocardial Infarction, Hx Pacemaker/ICD, Hx Peripheral Vascular Disease Respiratory History: Denies: Hx Asthma, Hx Chronic Obstructive Pulmonary Disease (COPD), Hx Lung Cancer, Hx Pneumonia, Hx Pulmonary Embolism GI History: Denies: Hx Gall Bladder Disease, Hx Gastrointestinal Bleed, Hx Ulcer, Hx Urosepsis History: Denies: Hx Kidney Stones, Hx Renal Disease Musculoskeletal History: Reports: Hx Back Problems Denies: Hx Arthritis, Hx Osteoporosis Sensory History: Reports: Hx Contacts or Glasses Denies: Hx Cataracts, Hx Glaucoma, Hx Hearing Aid Opthamlomology History: Reports: Hx Contacts or Glasses Denies: Hx Cataracts, Hx Glaucoma Neurological History: Reports: Hx Headaches Denies: Hx Dementia, Hx Migraine, Hx Seizures, Hx Transient Ischemic Attacks (TIA) Psychiatric History: Reports: Hx Anxiety, Hx Depression, Hx Inpatient Treatment , Hx Community Mental Health Tx, Hx Bipolar Disorder, Hx Suicide Attempt, Hx Substance Abuse Denies: Hx Attention Deficit Hyperactivity Disorder, Hx Eating Disorder, Hx Panic Disorder, Hx Post Traumatic Stress Disorder, Hx Schizophrenia, Hx of Violent Episodes Against Others, Other Psychiatric Issues/Disorders - Surgical History Surgery Procedure, Year, and Place: abscess drained under general anesthesia - Immunization History Date of Tetanus Vaccine: unknown Infectious Disease History: No Infectious Disease History: Denies: Hx Clostridium Difficile, Hx Hepatitis, Hx Human Immunodeficiency Virus (HIV), Hx of Known/Suspected MRSA, Hx Shingles, Hx Tuberculosis, Hx Known/ Suspected VRE, Hx Known/Suspected VRSA, History Other Infectious Disease, Traveled Outside the [place] in Last 30 Days - Family History Known Family History: Positive: None, Other Negative: Cardiac Disease, Hypertension, Diabetes Family History: Schizophrenia, anxiety, and EtOH dependence - Social History Alcohol Use: Rare Alcohol Amount: had approx 6 drinks last night Hx Substance Use: Yes Substance Use Type: Reports: None Substance Use Comment - Amount & Last Used: Benzo's Hx Tobacco Use: Yes Smoking Status (MU): Light Every Day Tobacco Smoker Type: Cigarettes Amount Used/How Often: 2 PACKS/WEEK Length of Time of Smoking/Using Tobacco: 13 years Have You Smoked in the Last Year: Yes Review of Systems Constitutional: Negative Negative: Fever Eyes: Negative ENT: Negative Cardiovascular: Negative Respiratory: Negative Gastrointestinal: Negative Negative: Vomiting, Nausea Genitourinary: Negative Musculoskeletal: Negative Skin: Negative Neurological: Other - Lightheaded and dizzy when the patient stands up Psychological: Normal All Other Systems Reviewed And Are Negative: Yes Physical Exam Vital Signs On Initial Exam: Initial Vitals Temp Pulse Resp BP Pulse Ox 96.9 F 108 20 126/83 98 10/28/16 22:37 10/28/16 22:37 10/28/16 22:37 10/28/16 22:37 10/28/16 22:37 Appearance: Positive: Well-Appearing, No Pain Distress Skin: Positive: Warm Head/Face: Positive: Normal Head/Face Inspection Eyes: Positive: DILLON ENT: Positive: Hearing grossly normal Neck: Positive: Supple Respiratory/Lung Sounds: Positive: Clear to Auscultation, Breath Sounds Present Cardiovascular: Positive: RRR Abdomen Description: Positive: Nontender, Soft Bowel Sounds: Positive: Present Musculoskeletal: Positive: Strength/ROM Intact Neurological: Positive: Sensory/Motor Intact, Alert, Oriented to Person Place, Time, Normal Gait Psychiatric: Positive: Affect/Mood Appropriate - [place] Coma Scale Coma Scale Total: 15 Diagnostics - Vital Signs Vital Signs Temp Pulse Resp BP Pulse Ox 10/28/16 22:42 96.9 F 108 20 126/83 98 10/28/16 22:37 96.9 F 108 20 126/83 98 - Laboratory Lab Results: Lab Results 10/28/16 10/28/16 10/28/16 Range/Units 22:54 22:55 23:06 WBC 7.4 (3.5-10.8) 10^3/ul RBC 4.77 (4.0-5.4) 10^6/ul Hgb 15.6 (12.0-16.0) g/dl Hct 46 (35-47) % MCV 97 (80-97) fL MCH 33 H (27-31) pg MCHC 34 (31-36) g/dl RDW 13 (10.5-15) % Plt Count 242 (150-450) 10^3/ul MPV 8 (7.4-10.4) um3 Neut % (Auto) 66.6 (38-83) % Lymph % (Auto) 23.1 L (25-47) % [place] % (Auto) 7.8 (1-9) % Eos % (Auto) 1.7 (0-6) % Baso % (Auto) 0.8 (0-2) % Absolute Neuts (auto) 4.9 (1.5-7.7) 10^3/ul Absolute Lymphs (auto) 1.7 (1.0-4.8) 10^3/ul Absolute Monos (auto) 0.6 (0-0.8) 10^3/ul Absolute Eos (auto) 0.1 (0-0.6) 10^3/ul Absolute Basos (auto) 0.1 (0-0.2) 10^3/ul Absolute Nucleated RBC 0 10^3/ul Nucleated RBC % 0.1 Sodium (133-145) mmol/L Potassium (3.5-5.0) mmol/L Chloride (101-111) mmol/L Carbon Dioxide (22-32) mmol/L Anion Gap (2-11) mmol/L BUN (6-24) mg/dL Creatinine (0.51-0.95) mg/dL Est GFR ( Amer) (>60) Est GFR (Non-Af Amer) (>60) BUN/Creatinine Ratio (8-20) Glucose (70-100) mg/dL POC Glucose (mg/dL) 306 H (74-106) mg/dL Lactic Acid (0.5-2.0) mmol/L Calcium (8.6-10.3) mg/dL Magnesium (1.9-2.7) mg/dL Total Bilirubin (0.2-1.0) mg/dL AST (13-39) U/L ALT (7-52) U/L Alkaline Phosphatase (34-104) U/L Total Protein (6.4-8.9) g/dL Albumin (3.2-5.2) g/dL Globulin (2-4) g/dL Albumin/Globulin Ratio (1-3) Beta HCG, Quant mIU/mL Urine Color Yellow Urine Appearance Clear Urine pH 5.0 (5-9) Ur Specific [place] 1.031 H (1.010-1.030) Urine Protein Negative (Negative) Urine Ketones 2+ H (Negative) Urine Blood Negative (Negative) Urine Nitrate Negative (Negative) Urine Bilirubin Negative (Negative) Urine Urobilinogen Negative (Negative) Ur Leukocyte Esterase Negative (Negative) Urine Glucose 3+(>=500 mg/dl) H (Negative) 10/28/16 10/28/16 Range/Units 23:06 23:06 WBC (3.5-10.8) 10^3/ul RBC (4.0-5.4) 10^6/ul Hgb (12.0-16.0) g/dl Hct (35-47) % MCV (80-97) fL MCH (27-31) pg MCHC (31-36) g/dl RDW (10.5-15) % Plt Count (150-450) 10^3/ul MPV (7.4-10.4) um3 Neut % (Auto) (38-83) % Lymph % (Auto) (25-47) % [place] % (Auto) (1-9) % Eos % (Auto) (0-6) % Baso % (Auto) (0-2) % Absolute Neuts (auto) (1.5-7.7) 10^3/ul Absolute Lymphs (auto) (1.0-4.8) 10^3/ul Absolute Monos (auto) (0-0.8) 10^3/ul Absolute Eos (auto) (0-0.6) 10^3/ul Absolute Basos (auto) (0-0.2) 10^3/ul Absolute Nucleated RBC 10^3/ul Nucleated RBC % Sodium 130 L (133-145) mmol/L Potassium 3.7 (3.5-5.0) mmol/L Chloride 99 L (101-111) mmol/L Carbon Dioxide 15 L (22-32) mmol/L Anion Gap 16 H (2-11) mmol/L BUN 13 (6-24) mg/dL Creatinine 0.90 (0.51-0.95) mg/dL Est GFR ( Amer) 94.5 (>60) Est GFR (Non-Af Amer) 73.5 (>60) BUN/Creatinine Ratio 14.4 (8-20) Glucose 294 H (70-100) mg/dL POC Glucose (mg/dL) (74-106) mg/dL Lactic Acid 0.6 (0.5-2.0) mmol/L Calcium 8.8 (8.6-10.3) mg/dL Magnesium 1.7 L (1.9-2.7) mg/dL Total Bilirubin 0.40 (0.2-1.0) mg/dL AST 14 (13-39) U/L ALT 11 (7-52) U/L Alkaline Phosphatase 114 H (34-104) U/L Total Protein 7.3 (6.4-8.9) g/dL Albumin 4.3 (3.2-5.2) g/dL Globulin 3.0 (2-4) g/dL Albumin/Globulin Ratio 1.4 (1-3) Beta HCG, Quant < 0.60 mIU/mL Urine Color Urine Appearance Urine pH (5-9) Ur Specific [place] (1.010-1.030) Urine Protein (Negative) Urine Ketones (Negative) Urine Blood (Negative) Urine Nitrate (Negative) Urine Bilirubin (Negative) Urine Urobilinogen (Negative) Ur Leukocyte Esterase (Negative) Urine Glucose (Negative) Result Diagrams: 10/28/16 23:06 10/28/16 23:06 Lab Statement: Any lab studies that have been ordered have been reviewed, and results considered in the medical decision making process. Re-Evaluation - Re-Evaluation First Eval Change: Improved Diabetic Course/Dx - Course Assessment/Plan: 31 y/o female presents to ED c/o sudden change in diabetic levels yesterday. Patient is a type I diabetic. Per nurse's report, the patient reports blood glucose in the 300s today, with a high at 426 and a high of 594 yesterday. BG was 268 at [facility] today just before she came here today. She states her BG was 107 when she woke up this morning though. Pt states she's been taking insulin all day but it hasn't been helpling. Associated sx: patient feels dizzy and lightheaded when she stands up. Patient denies nausea, vomiting and fevers. No change in diet reported. Patient was discharged home with uncontrolled DM. Patient was instructed to F/U with her PCP in 2-3 days. Pt is agreeable with this plan - Diagnoses Provider Diagnoses: Uncontrolled diabetes mellitus Discharge - Discharge Plan Condition: Improved Disposition: HOME Patient Education Materials: Type 1 Diabetes in Adults (ED) Referrals: [facility] [place] [facility]ICIAN REFERRAL [Outside] (Please follow up in 2-3 days.) The documentation as recorded by the Maricruz kang Edward accurately reflects the service I personally performed and the decisions made by me, Damion Hernnadez MD.
[2016-10-29 00:42] VITALS: BP 113/73
== END 2016-10-29 00:39 | disposition home or self-care (01) ==
LOC: ED 22:31
DX: E10.65 Type 1 diabetes mellitus with hyperglycemia (principal); Z79.4 Long term (current) use of insulin; Z32.02 Encounter for pregnancy test, result negative; F17.210 Nicotine dependence, cigarettes, uncomplicated
CPT/HCPCS: 36415; 80053; 81003; 83605; 83735; 84702; 85025; 96360; 96372; 99282

== ENCOUNTER 2016-11-22 23:02 | Inpatient (IN) | payer MEDICARE, MEDICAID ==
[2016-11-22 23:58] LABS: Urine Bilirubin Negative (Negative); Urine Glucose 3+(>=500 mg/dL) (Negative); Urine Nitrite Negative (Negative)
[2016-11-23 00:02] LABS: Hematocrit 48 % (35-47); Hemoglobin 15.7 g/dl (12.0-16.0); Mean Corpuscular HGB Conc 33 g/dl (31-36); Mean Corpuscular Hemoglobin 33 pg (27-31); Mean Corpuscular Volume 100 fL (80-97); Mean Platelet Volume 9 um3 (7.4-10.4); Red Blood Count 4.77 10^6/ul (4.0-5.4); Red Cell Distribution Width 13 % (10.5-15); White Blood Count 9.3 10^3/ul (3.5-10.8)
[2016-11-23 00:15] LABS: ALT 11 U/L (7-52); AST 12 U/L (13-39); Alkaline Phosphatase 133 U/L (34-104); Anion Gap 15 mmol/L (2-11); BUN/Creatinine Ratio 23.4 (8-20); Blood Urea Nitrogen 15 mg/dL (6-24); CO2 Carbon Dioxide 19 mmol/L (22-32); Calcium 9.5 mg/dL (8.6-10.3); Chloride 94 mmol/L (101-111); EGFR African American 140.1 (>60); Globulin 2.8 g/dL (2-4); Potassium 4.3 mmol/L (3.5-5.0); Sodium 128 mmol/L (133-145); Total Protein 6.8 g/dL (6.4-8.9)
[2016-11-23 00:18] LABS: Benzodiazepine Urine Screen Presumptive Positive (None Detect)
[2016-11-23 00:20] LABS: Glucose 506 mg/dL (70-100)
[2016-11-23 00:32] LABS: Acetaminophen < 15 mcg/mL; Alcohol < 10 mg/dL (<10); Salicylate < 2.50 mg/dL (<30)
[2016-11-23 00:41] LABS: TSH (Thyroid Stimulating Horm) 0.86 mcIU/mL (0.34-5.60)
[2016-11-23] MEDS ORDERED: Insulin REGULAR(*) 1 UNITS UNIT IV PUSH ONE (00:41)
[2016-11-23] MEDS ORDERED: NS 0.9% 1000 ML* 1,000 ML IV ONE ×2 (00:42→06:25)
[2016-11-23] MEDS: NS 0.9% 1000 ML* 2,000 ML IV ONE ×2 (01:19→01:24)
[2016-11-23 02:42] LABS: Glucose 392 mg/dL (70-100)
--- NOTE | 2016-11-23 05:50 | ED ---
ambrocio Person Timothy, scribed for Pablo Dee on 11/22/16 at 2323 . Psychiatric Complaint - HPI Summary HPI Summary: Bisi Gallegos is a 31 yo female presenting to [facility] with SI with a plan by OD for [facility] for the past 5-6 days. She took 5 x 1 mg xanax 1 hr [employer]. She is not in any current pain. Her MHx includes GERD, DM I, bipolar disorder, depression, anxiety, substance abuse, suicide attempt, tobacco use. - History Of Current Complaint Chief Complaint: EDMentalHealth Time Seen by Provider: 11/22/16 23:18 Hx Obtained From: Patient Hx Last Menstrual Period: IUD Onset/Duration: Gradual Onset, Lasting Days, Still Present Timing: Constant Severity Initially: Moderate Severity Currently: Moderate Character: Depressed Related History: Positive For: Prior Psychiatric Issues Has Suicidal: Reports: Thoughts, With A Plan - Allergies/Home Medications Allergies/Adverse Reactions: Allergies Allergy/AdvReac Type Severity Reaction Status Date / Time No Known Allergies Allergy Verified 11/22/16 23:06 PMH/Surg Hx/FS Hx/Imm Hx Endocrine/Hematology History: Reports: Hx Diabetes Denies: Hx Anticoagulant Therapy, Hx Thyroid Disease Cardiovascular History: Denies: Hx Congestive Heart Failure, Hx Deep Vein Thrombosis, Hx Hypertension , Hx Myocardial Infarction, Hx Pacemaker/ICD, Hx Peripheral Vascular Disease Respiratory History: Denies: Hx Asthma, Hx Chronic Obstructive Pulmonary Disease (COPD), Hx Lung Cancer, Hx Pneumonia, Hx Pulmonary Embolism GI History: Denies: Hx Gall Bladder Disease, Hx Gastrointestinal Bleed, Hx Ulcer, Hx Urosepsis History: Denies: Hx Kidney Stones, Hx Renal Disease Musculoskeletal History: Reports: Hx Back Problems Denies: Hx Arthritis, Hx Osteoporosis Sensory History: Reports: Hx Contacts or Glasses Denies: Hx Cataracts, Hx Glaucoma, Hx Hearing Aid Opthamlomology History: Reports: Hx Contacts or Glasses Denies: Hx Cataracts, Hx Glaucoma Neurological History: Reports: Hx Headaches Denies: Hx Dementia, Hx Migraine, Hx Seizures, Hx Transient Ischemic Attacks (TIA) Psychiatric History: Reports: Hx Anxiety, Hx Depression, Hx Inpatient Treatment , Hx Community Mental Health Tx, Hx Bipolar Disorder, Hx Suicide Attempt, Hx Substance Abuse Denies: Hx Attention Deficit Hyperactivity Disorder, Hx Eating Disorder, Hx Panic Disorder, Hx Post Traumatic Stress Disorder, Hx Schizophrenia, Hx of Violent Episodes Against Others, Other Psychiatric Issues/Disorders - Surgical History Surgery Procedure, Year, and Place: abscess drained under general anesthesia - Immunization History Date of Tetanus Vaccine: unknown Infectious Disease History: No Infectious Disease History: Denies: Hx Clostridium Difficile, Hx Hepatitis, Hx Human Immunodeficiency Virus (HIV), Hx of Known/Suspected MRSA, Hx Shingles, Hx Tuberculosis, Hx Known/ Suspected VRE, Hx Known/Suspected VRSA, History Other Infectious Disease, Traveled Outside the [place] in Last 30 Days - Family History Known Family History: Positive: Other Negative: Cardiac Disease, Hypertension, Diabetes Family History: schizophrenia, bipolar disorder, anxiety disorders, depression, EtOH abuse. - Social History Alcohol Use: Rare Alcohol Amount: had approx 6 drinks last night Hx Substance Use: Yes Substance Use Type: Reports: None Substance Use Comment - Amount & Last Used: Benzo's Hx Tobacco Use: Yes Smoking Status (MU): Light Every Day Tobacco Smoker Type: Cigarettes Amount Used/How Often: 2 PACKS/WEEK Length of Time of Smoking/Using Tobacco: 13 years Have You Smoked in the Last Year: Yes Review of Systems Constitutional: Negative Eyes: Negative ENT: Negative Cardiovascular: Negative Respiratory: Negative Gastrointestinal: Negative Genitourinary: Negative Musculoskeletal: Negative Skin: Negative Neurological: Negative Positive: Depressed - SI All Other Systems Reviewed And Are Negative: Yes Physical Exam Triage Information Reviewed: Yes Vital Signs On Initial Exam: Initial Vitals Temp Pulse Resp BP Pulse Ox 98.1 F 131 16 117/79 97 11/22/16 23:06 11/22/16 23:06 11/22/16 23:06 11/22/16 23:06 11/22/16 23:06 Vital Signs Reviewed: Yes Appearance: Positive: Well-Appearing, No Pain Distress, Well-Nourished Skin: Positive: Warm, Skin Color Reflects Adequate Perfusion, Dry Head/Face: Positive: Normal Head/Face Inspection Eyes: Positive: EOMI, DILLON ENT: Positive: Normal ENT inspection, Hearing grossly normal. Negative: Muffled /hoarse voice Neck: Positive: Supple, Nontender Respiratory/Lung Sounds: Positive: Clear to Auscultation, Breath Sounds Present Cardiovascular: Positive: RRR, Pulses are Symmetrical in both Upper and Lower Extremities Abdomen Description: Positive: Nontender, Soft Bowel Sounds: Positive: Present Musculoskeletal: Positive: Normal, Strength/ROM Intact Neurological: Positive: Normal, Sensory/Motor Intact, Alert, Oriented to Person Place, Time Psychiatric: Positive: Depressed Diagnostics - Vital Signs Vital Signs Temp Pulse Resp BP Pulse Ox 11/22/16 23:07 98.1 F 131 16 117/79 97 11/22/16 23:06 98.1 F 131 16 117/79 97 - Laboratory Result Diagrams: 11/22/16 23:45 11/22/16 23:45 Lab Statement: Any lab studies that have been ordered have been reviewed, and results considered in the medical decision making process. Course/Dx - Course Assessment/Plan: Bisi Gallegos is a 31 yo female presenting to [facility] with SI with a plan by OD for [facility] for the past 5-6 days. Pt medication list reviewed this visit. Due to her high blood sugar, in the ED course she received insulin and IV fluids. She is medically clear for MHUE at 0424. She will be signed out pending MHUE. - Differential Dx/Clinical Impression Differential Diagnosis/HQI/PQRI: Positive: Depression, Suicidal Ideation Provider Diagnosis: Depression, Suicidal ideation, Hyperglycemia Discharge - Discharge Plan Condition: Stable Disposition: OTHER Discharge Disposition Comment: signed out pending [facility]UE results Referrals: Estefani Forte MD [Primary Care Provider] - The documentation as recorded by the ambrocio kang Timothy accurately reflects the service I personally performed and the decisions made by , Pablo Dee.
[2016-11-23] MEDS ORDERED: Nicotine Inhaler* 10 MG AMP INH PRN (08:53)
[2016-11-23] MEDS ORDERED: Mouth Piece, Nicotine* 1 EACH CARTRIDGE INH ONE (09:00)
[2016-11-23] MEDS ORDERED: FLUoxetine CAP* 20 MG PO SCH (12:00)
[2016-11-23] MEDS ORDERED: BuPROPion XL* 300 MG TAB.XL PO SCH (12:00)
[2016-11-23] MEDS: BuPROPion XL* 300 MG TAB.XL PO SCH (12:25)
[2016-11-23] MEDS: FLUoxetine CAP* 20 MG PO SCH (12:25)
[2016-11-23] MEDS ORDERED: clonazePAM TAB(*) 1 MG PO PRN (13:52)
--- NOTE | 2016-11-23 19:29 | HP ---
HISTORY AND PHYSICAL: DATE OF ADMISSION: 11/23/16 SUPERVISING PSYCHIATRIST: Dr. Braxton Velasquez * (DICTATED BY MESERET EDWARDS NP) JUSTIFICATION FOR ADMISSION: The patient presented to the emergency department with a friend after reporting an overdose of alprazolam along with some marijuana and alcohol in an attempt to harm herself. She continued to endorse suicidal ideation with a plan to overdose. In the emergency room, she expressed feeling depressed and presented as such. She agreed to voluntary admission on the mental health unit. CHIEF COMPLAINT: "Depressed and suicidal thoughts." HISTORY OF PRESENT ILLNESS: The patient is a 31-year-old white female, , mother of 8-year-old daughter, domiciled, and works part-time. This is her 10th admission to the psychiatric unit in the past 2 years. She reports intractable depression and states "I'm always depressed." Upon questioning, she could not recall the last time she was not dysphoric. She endorses hopelessness, helplessness. She endorses hypersomnia, decreased appetite and ADLs. She endorses anhedonia and social isolation. She has a history of self- injurious behavior, but denies doing so for "a long time." Her last admission was on 09/30/16. According to records and to staff, she presents similar and during her hospitalizations, she is minimally cooperative with attending programming. There have not been any incidences of violence or aggressive behavior. Mouna reports generalized anxiety with panic attacks, seemingly unprovoked. She reports her last panic attack was last week. She endorses periods of agitation and irritability. States that she and her partner "fight about everything." This commercial lines underwriter clarifies that they argue, she denies domestic violence. Mouna denies depersonalization or delusions. She denies rituals or obsessions. She denies HI or . The patient is currently prescribed Prozac 40 mg p.o. q.a.m., Wellbutrin XL 300 mg p.o. q.a.m., Rexulti 3 mg p.o. q.h.s., trazodone 150 mg p.o. q.h.s., dextroamphetamine 30 mg daily, as stated above it seems like she was prescribed 30 mg t.i.d. Mouna tells me she takes half of it twice a day. This was last filled on 11/12/16. She also takes alprazolam 1 mg t.i.d. p.r.n. anxiety. PAST PSYCHIATRIC HISTORY: As stated above. This is her 10th psychiatric admission to [facility]. She was last discharged after 3 or 4 days stay on 10/04/16. She has an outpatient therapist, Stella Ramírez at [facility]. She reports that she has seen Dr. Morris there; however, he recently retired. She is unsure of which psychiatrist she will be transferred to. She also reports that she has psychiatric medications managed by Dr. Khurram Knight. She states she last saw him approximately 2 weeks ago; however, she also says she is no longer seeing him. According to [facility], she receives 30-day supply of dextroamphetamine 30 mg t.i.d. and alprazolam [address] Knight. [facility] reference #[id number]. SUBSTANCE USE HISTORY: Mouna reports she drinks alcohol "occasionally." She smokes marijuana several times a week and smokes cigarettes approximately 2 packs per week. She denies that substances are problematic in her life. She states that she graduated from [facility] approximately 6 months ago because "they told me to go there." This commercial lines underwriter clarified that she was suggested to attend substance use treatment per recommendations of [facility]. TRAUMA/ABUSE HISTORY: Deferred at this time. The patient requests not to discuss at this time. FAMILY PSYCHIATRIC HISTORY: Father has a history of alcohol use disorder. Maternal uncle schizophrenia. No known family suicide. PAST MEDICAL HISTORY: Type 1 diabetes. The patient has an insulin pump and sees Dr. Nevarez for Endocrinology. The patient is overweight. She denies surgical history. No other medications. See above for current psychotropic medications. SOCIAL HISTORY: The patient lives with her partner, Yohan, of 13 years. They have an 8-year-old daughter, Anna. Yohan works at a restaurant in [facility] and Mouna works part-time at a [employer] restaurant. REVIEW OF SYSTEMS: The patient presents as dysphoric and constricted. She is mildly irritable during interview. Eyes: Negative. ENT: Negative. Cardiovascular: Negative. Respiratory: Negative. GI: Negative. Genitourinary: Negative. Musculoskeletal: Negative. Skin: Negative. Neurological: Positive for depressed with SI. PHYSICAL EXAMINATION GENERAL APPEARANCE: Well appearing, no acute distress, well nourished. VITAL SIGNS: Most recent vital signs temperature 98.1, pulse 131, respiratory rate 16, O2 saturation of 97%, BP 117/79. HEENT: Head and face: Positive normal head and face inspection. Eyes: Positive EOMI. PERRL. ENT: Positive normal ENT inspection. Hearing grossly normal. NECK: Positive supple, nontender. RESPIRATORY: Lung sounds positive. Clear to auscultation. Breath sounds present. CARDIOVASCULAR: RRR. Pulses are symmetrical in both upper and lower extremities. ABDOMEN: Soft, nontender. Bowel sounds present. MUSCULOSKELETAL: Normal strength. ROM intact. NEUROLOGIC: Positive normal sensory and motor intact. A and O x3. PSYCHIATRIC: Positive depressed. SKIN: Positive warm, skin color reflects adequate perfusion, dry. MENTAL STATUS EXAM: Mouna is lying down in her bed. Upon approach, she is easy to rouse and agrees to sit up for psychiatric interview. She is dysphoric with poor eye contact, sitting cross-legged on the bed, slumped posture. Her hair is dyed bright purple. She is obese and appears stated age. She is cooperative with interview, gives short angeline answers and irritable at times. She is alert and oriented x3. Concentration is fair. Memory is fair. Mood is "depressed." Affect is constricted. Speech is soft and mumbled. Thought process is circumstantial. Some thought poverty noted. Thought content: Positive for SI. Insight is poor. Judgment is poor. Fund of knowledge is adequate. LABORATORY DATA: Lab data obtained in the emergency department hematocrit 48, lymph percentage 18.4. Sodium 128, chloride 94, carbon dioxide 19, anion gap 15 , BUN and creatinine 23/0.4. Upon arrival to the hospital, her glucose was over 500. She received IV treatment in the emergency room. This has decreased to approximately 200, most recent reading was 203 before lunch. As stated above , client has an insulin pump. She reports she checks her fingersticks approximately twice a day. Last menstrual period unknown. Client has an IUD. We will obtain urine test to the urine collected for urinalysis. Toxicology: Serum alcohol was less than 10. No acetaminophen or salicylates present. Her urine tox was positive for amphetamines, benzodiazepine, and cannabis. DIAGNOSES: [place] I: Major depressive disorder, severe, recurrent; cannabis use disorder; tobacco use disorder; rule out amphetamine use disorder. [place] II: Borderline personality disorder by history. [place] III: Type 1 diabetes mellitus. [place] IV: Psychosocial stressors related to relationship with partner and financial strain. [place] V: 35. ASSESSMENT: Mouna is a 31-year-old white female with a history of previous hospitalizations, self-injury, suicide attempt, substance abuse, and questionable adherence to outpatient treatment. She presented to the emergency room with complaints of depression and suicidal ideation with a plan to overdose. She reports suicidal gesture via overdose on prescribed alprazolam, alcohol, and cannabis. She denies any current stressors other than tense relationship with significant other. She is being prescribed a large amount of stimulants and benzodiazepine and I have left a message to discuss medication regimen with her outpatient psychiatrist. Mouna is agreeable to voluntary admission for immediate safety and stabilization over the weekend. TREATMENT PLAN: Admin to the mental health unit, voluntary status, 15-minute safety checks, full code status. Initiate intensive milieu, individual, and group therapy. Medications and management will involve continuing her insulin pump and monitoring blood glucose 4 times a day. We will consider hospitalist consult if her blood glucose does not stabilize over-night. I will be holding the stimulant at this time and using a long-acting benzodiazepine, clonazepam in order to taper benzodiazepine use and prevent risk for withdrawal symptoms. Discharge planning will include collaboration with her outpatient providers and her significant other. MESERET EDWARDS NP [id number]/[facility] #: [id number] ANNIE
--- NOTE | 2016-11-23 20:01 | ED ---
Maricruz Person Edward, scribed for Hiram Garcia MD on 11/23/16 at 0729 . Progress - Progress Note Progress Note: Patient is still feeling depressed on visit. PE - VITAL SIGNS:~Reviewed. GENERAL:~ Patient is a well-developed and nourished female who is lying comfortable in the stretcher.~ Patient is not in any acute respiratory distress. HEAD AND FACE:~No signs of trauma.~ No ecchymosis, hematomas or skull depressions. No sinus tenderness. EYES:~PERRLA, EOMI x 2, No injected conjunctiva, no nystagmus. EARS:~Hearing grossly intact. Ear canals and tympanic membranes are within normal limits. MOUTH:~Oropharynx within normal limits. NECK:~Supple, trachea is midline, no adenopathy, no JVD, no carotid bruit, no c- spine tenderness, neck with full ROM. CHEST:~Symmetric, no tenderness at palpation LUNGS:~Clear to auscultation bilaterally. No wheezing or crackles. CVS:~Regular rate and rhythm, S1 and S2 present, no murmurs or gallops appreciated. ABDOMEN:~Soft, non-tender. No signs of distention. No rebound no guarding, and no masses palpated. Bowel sounds are normal. EXTREMITIES:~FROM in all major joints, no edema, no cyanosis or clubbing. NEURO:~Alert and oriented x 3. No acute neurological deficits. Speech is normal and follows commands. SKIN:~Dry and warm PSYCH:~Depressed, quiet, and denies any suicidal thoughts or plan. No homicidal thoughts or plan. No signs of psychosis or pressure speech. No tangential speech. MHU evaluation done by Dr. Pugh. Patient will be voluntarily admitted to [facility]. Diagnosis - depressive disorder ASSESSMENT AND PLAN - Rosy Bisi Gallegos is a 31 yo female presenting to [facility] with SI with a plan by OD for [facility] for the past 5-6 days. She took 5 x 1 mg xanax 1 hr [employer]. She is not in any current pain. Her MHx includes GERD, DM I, bipolar disorder, depression, anxiety, substance abuse, suicide attempt, tobacco use. The patient was signed out by Dr. Dee. Pt reports she is sad and wants to end her life because she is very depressed. Pt was medically cleared by Dr. Dee and was awaiting MHU eval. Dr. Pugh reviewed her case and after his assessment, recommended d/c with f/u at outpatient therapy. The patient was dx with depression disorder. Course/Dx - Diagnoses Provider Diagnoses: Depression, Suicidal ideation, Hyperglycemia The documentation as recorded by the Maricurz kang Edward accurately reflects the service I personally performed and the decisions made by me, Hiram Garcia MD.
[2016-11-23] MEDS: traZODone TAB* 50 MG TAB PO SCH (20:43)
[2016-11-23] MEDS: PTO: Brexpiprazole (NF) 3 MG TAB PO SCH (20:43)
[2016-11-23] MEDS ORDERED: BREXPIPRAZOLE 2 MG PO SCH (21:00)
[2016-11-23] MEDS ORDERED: traZODone TAB* 100 MG PO SCH (21:00)
[2016-11-24] MEDS: NOVOLOG INSULIN PUMP SUBCUT SCH ×2 (08:00→12:35)
[2016-11-24] MEDS: BuPROPion XL* 300 MG TAB.XL PO SCH (09:32)
[2016-11-24] MEDS: FLUoxetine CAP* 20 MG PO SCH (09:32)
[2016-11-24] MEDS: PTO: Brexpiprazole (NF) 3 MG TAB PO SCH (20:43)
[2016-11-24] MEDS: traZODone TAB* 50 MG TAB PO SCH (20:44)
[2016-11-25] MEDS: FLUoxetine CAP* 20 MG PO SCH (08:29)
[2016-11-25] MEDS: BuPROPion XL* 300 MG TAB.XL PO SCH (08:29)
--- NOTE | 2016-11-25 18:46 | PN ---
Subjective - Subjective Service Type: 34301 Hosp care 15 min low complexity Subjective: Mouna reports that she has been feeling a lot better today with fewer problems than yesterday. Denies any SI or HI. Also denies hallucinations or delusions. Bloood sugar appears to be ib good control. Hopeful to be able to attend her brother's and be back to work soon. Objective - Appearance Appearance: Other Dysmorphic Features: No Hygiene: Normal Grooming: Fairly Well Kept - Behavior Psychomotor Activities: Normal Exhibits Abnormal Movement: No - Attitude and Relatedness Attitude and Relatedness: Appropriate Eye Contact: Good - Speech Quality: Unpressured Latencies: Normal Quantity: Appropriate - Mood Patient's Decription of Mood: "Okay" - Affect Observed Affect: Depressed Affect Consistent with: Dysphoria - Thought Process Patient's Thought Process: Coherent, Goal Directed Thought Content: No Passive Wish, No Suicidal Planning, No Homicidal Ideation, No Paranoid Ideation - Sensorium Experiencing Hallucinations: No, Sensorium is Clear Type of Hallucinations: Visual: No, Auditory: No, Command: No - Level of Consciousness Level of Consciousness: Alert Orientation: Yes Intact, Yes Orientated to Time, Yes Orientated to Place, Yes Orientated to Person - Impulse Control Impulse Control: Intact - Insight and Judgement Insight and Judgement: Fair - Group Participation Particating in Group Activities: Yes - Medication Management Medication Management Adherence: Yes Assessment - Assessment Merits Inpatient Hospitalization: Consolidate Improvements, Pending Safe DC Plan Plan - Plan Treatment Plan: Name: MOUNA RILEY Birthdate: 1985 [id number] Continued Medication Management: Continue Outpt Medication Medications: Current Medications Brexpiprazole (Rexulti 3 Mg Tab (Nf)) 3 mg PO BEDTIME [facility] Last Admin: 11/24/16 20:43 Dose: 3 mg Bupropion HCl (Bupropion Xl*) 300 mg PO DAILY [facility] Last Admin: 11/25/16 08:29 Dose: 300 mg Clonazepam (Klonopin Tab(*)) 1 mg PO BID PRN PRN Reason: ANXIETY Fluoxetine HCl (Prozac Cap*) 40 mg PO DAILY [facility] Last Admin: 11/25/16 08:29 Dose: 40 mg Nicotine (Nicotine Inhaler*) 10 mg INH Q2H PRN PRN Reason: CRAVING Last Admin: 11/23/16 12:28 Dose: 10 mg Pto: Novolog Insulin (Pump) 0 dose SUBCUT .SEE PROTOCOL MALA PRN Reason: Protocol Last Admin: 11/24/16 12:35 Dose: 4.6 dose Trazodone HCl (Desyrel Tab*) 150 mg PO BEDTIME [facility] Last Admin: 11/24/16 20:44 Dose: 150 mg - Discharge Plan Discharge Plan: Outpatient Follow Up Outpatient Program: [facility]
[2016-11-25] MEDS: traZODone TAB* 50 MG TAB PO SCH (20:14)
[2016-11-25] MEDS: PTO: Brexpiprazole (NF) 3 MG TAB PO SCH (20:14)
[2016-11-26 07:41] VITALS: BP 116/75
[2016-11-26] MEDS: FLUoxetine CAP* 20 MG PO SCH (08:35)
[2016-11-26] MEDS: BuPROPion XL* 300 MG TAB.XL PO SCH (08:35)
--- NOTE | 2016-11-26 11:37 | PN ---
MHU: Group Therapy Note - Service Type Service Type: 70228 Group Psychotherapy - Cognitive Behavioral Group Therapy ( CBT):Patient was attentive and participatory in CBT programming this morning, and remained in good behavioral control. Patient expressed positive insights regarding relevant treatment interventions and goals.
--- NOTE | 2016-11-27 07:36 | DS ---
DISCHARGE SUMMARY: DATE OF ADMISSION: 11/23/16 DATE OF DISCHARGE: 11/26/16 SUPERVISING PSYCHIATRIST: Braxton Velasquez MD * (DICTATED BY MESERET EDWARDS NP) DISCHARGE DIAGNOSES: [place] I: Major depressive disorder, severe, recurrent; cannabis use disorder; tobacco use disorder. [place] II: Borderline personality disorder. [place] III: Type 1 diabetes mellitus. [place] IV: Psychosocial stressors related to relationship with partner and financial strain. [place] V: 50. CONDITION AT THE TIME OF DISCHARGE: Improved. Mouna reports that she is "alright and definitely not as bad as I was." She states that she was just really depressed last week with no apparent trigger and she impulsively took some pills. She reports that she has had stable mood over the weekend. She states that it was "boring" while she was admitted. She reports her anxiety to be "not too bad" and she has not utilized p.r.n. medications. She states that her blood glucose levels were more stable and better than they are at home. She attributes this to be more consistent with counting carbs and using her insulin pump while here. Mouna states that she is no longer seeing Dr. Paulson Member and she has an intake to transfer from Dr Danielson to Dr. Fernandez on January 04. She has an appointment this afternoon with therapist, Stella Ramírez and also has a standing group therapy at 2:15. She indicates readiness for discharge. She denies SI or SIB urges. She states understanding of this clinical writer's recommendation to stop both the Adderall and alprazolam. She was informed that these medications are likely attributing to labile mood and decreased ability to use coping skills. She states that her friend is borrowing her car while she is in the hospital as this friend is also helping babysit her daughter. She plans to notify her friend to pick her up today and she agrees to follow up with outpatient providers. She is also encouraged to follow up with her primary, Dr. Nevarez, for insulin treatment and diabetes management. MENTAL STATUS EXAM: Mouna was alert and oriented. She was pleasant and euthymic. She smiled upon approach. She was well groomed, the hair dyed bright purple. She is wearing her own clothing and she was alert and oriented x3. Eye contact was good. Speech was soft and articulate. Affect was congruent. She reports her mood is "alright." Her thought process was linear and goal directed. She denies SI, HI, or SIB urges. Her insight was good in that she is agreeable to recommendations. Her judgment is fair in that she is minimizing her use of prescribed and non-prescribed substances. Fund of knowledge is excellent. Written discharge instructions were given to the patient. MEDICATIONS: She is to continue: 1. Rexulti 3 mg at bedtime. 2. Bupropion XL 300 mg q.a.m. 3. Fluoxetine 40 mg p.o. q.a.m. 4. Trazodone 150 mg p.o. q.h.s. p.r.n. insomnia. She is instructed to stop both the Adderall and alprazolam. She did not have any of the clonazepam that was prescribed here at the hospital. DIET: Diabetic. ACTIVITY: Ambulation as tolerated. She denies offer of tobacco cessation assistance and there are no pending labs or diagnostic studies at this time. FOLLOWUP CARE: Mouna will follow up with [facility] and see her therapist, Stella Ramírez this week. She will attend her [facility] group this afternoon and her next scheduled appointment with the psychiatrist is January [address] Arlet Fernandez. HOSPITAL COURSE: Reason for admission: The patient presented to the emergency department with a friend after reporting an overdose of alprazolam along with some marijuana and alcohol in an attempt to harm herself. She continue to endorse suicidal ideation with a plan to overdose. In the emergency room, she expressed feeling depressed and presented as such. She agreed to voluntary admission on the unit. PSYCHIATRIC TREATMENT RENDERED: Mouna was admitted to the mental health unit voluntary status on 15-minute safety checks and full code status. She was encouraged to participate in milieu, individual and group therapies. She allowed staff to continue fingersticks 4 times a day and monitor the use of her insulin pump. There did not seem to be a need to consult hospitalist as her blood glucose levels were relatively stable after the emergency room. Medications included her outpatient Rexulti, which she had started a month or two prior to admission to the unit. The stimulant was discontinued and alprazolam was changed to clonazepam p.r.n. to taper benzodiazepine use and prevent risk for withdrawal symptoms. She did not present with withdrawal symptoms during her stay here. While on the unit, her monitored status decreased to 30-minute checks and she put in her 72-hour notice on Saturday, . In meeting with Mouna today, she presented as ready for discharge, denied immediate risk for suicidal ideation or harms to self. She was agreeable to discharge planning. She was discharged around noon via nursing staff, and her friend picked her up with her car. The patient remains at mild risk for harm as she has presented with a similar presentation now 10 times in the recent years. She is encouraged to refrain from prescribed and non- prescribed controlled substances. Discharge was decided upon by this clinical writer and supervising psychiatrist due to patient's request and obligation to treat in the least restrictive setting. She was safe on all checks and she denies stressors at the time of discharge. EMSERET EDWARDS NP [id number]/[facility] #: [id number] ANNIE
== END 2016-11-26 12:40 | disposition home or self-care (01) | DRG 885 ==
LOC: ED 23:02 → SUPCPDRO 23:02 → BSU 11-23 08:53
PROVIDERS: ADMIT Psychiatry & Neurology Psychiatry; ATTEND Psychiatry & Neurology Psychiatry
PROC: GZHZZZZ Group Psychotherapy (ICD-10-PCS; principal; 2016-11-26)
DX: F33.2 Major depressive disorder, recurrent severe without psychotic features (principal); E10.9 Type 1 diabetes mellitus without complications; K21.9 Gastro-esophageal reflux disease without esophagitis; F41.0 Panic disorder [episodic paroxysmal anxiety]; T51.92XA Toxic effect of unspecified alcohol, intentional self-harm, initial encounter; F17.210 Nicotine dependence, cigarettes, uncomplicated; Z96.41 Presence of insulin pump (external) (internal); E66.3 Overweight; F12.90 Cannabis use, unspecified, uncomplicated; F60.3 Borderline personality disorder; T42.4X2A Poisoning by benzodiazepines, intentional self-harm, initial encounter; T40.7X2A Poisoning by cannabis (derivatives), intentional self-harm, initial encounter; Y92.9 Unspecified place or not applicable; Z72.89 Other problems related to lifestyle; Z81.1 Family history of alcohol abuse and dependence; Z81.8 Family history of other mental and behavioral disorders; Z91.5 Personal history of self-harm; Z79.4 Long term (current) use of insulin; Z68.30 Body mass index [BMI] 30.0-30.9, adult
CPT/HCPCS: 36415; 80053; 80307; 80320; 80329; 81003; 82947; 84443; 84702; 85025; 90853; 99222; 99231; 99238; A9270-GY; G0480

== ENCOUNTER 2016-12-26 23:14 | Inpatient (IN) | payer MEDICARE, MEDICAID ==
[2016-12-27 00:56] LABS: Hematocrit 47 % (35-47); Hemoglobin 15.9 g/dl (12.0-16.0); Mean Corpuscular HGB Conc 34 g/dl (31-36); Mean Corpuscular Hemoglobin 32 pg (27-31); Mean Corpuscular Volume 96 fL (80-97); Mean Platelet Volume 9 um3 (7.4-10.4); Red Blood Count 4.92 10^6/ul (4.0-5.4); Red Cell Distribution Width 12 % (10.5-15); White Blood Count 12.8 10^3/ul (3.5-10.8)
[2016-12-27 01:11] LABS: ALT 10 U/L (7-52); AST 17 U/L (13-39); Albumin 4.3 g/dL (3.2-5.2); Alkaline Phosphatase 126 U/L (34-104); Anion Gap 17 mmol/L (2-11); BUN/Creatinine Ratio 21.5 (8-20); Blood Urea Nitrogen 14 mg/dL (6-24); CO2 Carbon Dioxide 17 mmol/L (22-32); Calcium 9.3 mg/dL (8.6-10.3); Chloride 97 mmol/L (101-111); EGFR African American 137.6 (>60); Globulin 3.2 g/dL (2-4); Glucose 302 mg/dL (70-100); Potassium 3.7 mmol/L (3.5-5.0); Sodium 131 mmol/L (133-145); Total Protein 7.5 g/dL (6.4-8.9)
[2016-12-27 01:15] LABS: Acetaminophen < 15 mcg/mL; Alcohol 98 mg/dL (<10); Salicylate < 2.50 mg/dL (<30)
[2016-12-27 01:17] LABS: Budding Yeast Present (Absent); Urine Bacteria 2+ (Absent); Urine Bilirubin Negative (Negative); Urine Glucose 3+(>=500 mg/dL) (Negative); Urine Nitrite Negative (Negative)
[2016-12-27 01:25] LABS: TSH (Thyroid Stimulating Horm) 1.63 mcIU/mL (0.34-5.60)
--- NOTE | 2016-12-27 01:30 | ED ---
Cam Person Thomas, scribed for Damion Hernandez MD on 12/27/16 at 0116 . Psychiatric Complaint - HPI Summary HPI Summary: The pt is a 31 y/o F presenting to the ED c/o SI that began a weekg ago. She reports that her SI has worsened in the last day, prompting an ED visit. She has been a patient at [facility] in the past. She says that she thinks about overdosing, per EMR. She drank a bottle of wine tonight, per EMR. These SI are aggravated and alleviated by nothing. Pt denies any medical complaints at this time. PMHx: DM, NICHOLE, depression, inpatient mental health treatment, community mental health treatment, bipolar disorder, suicide attempts, substance abuse. PSHx: abscess drainage under general anesthesia. SHx: smoker, rare alcohol use, marijuana use. - History Of Current Complaint Chief Complaint: EDMentalHealth Time Seen by Provider: 12/27/16 00:03 Hx Obtained From: Patient Hx Last Menstrual Period: IUD Onset/Duration: Lasting Weeks - 1, Still Present, Worse Since - today Timing: Constant Aggravating Factor(s): Nothing Alleviating Factor(s): Nothing Associated Signs And Symptoms: Positive: Negative Related History: Positive For: Prior Psychiatric Issues, Drug Abuse Counseling, Admissions Related To Substance Abuse Has Suicidal: Reports: Thoughts. Denies: With A Plan Ingestion History: Type/Name Of Drug - ETOH, Amount Ingested - bottle of wine - Allergies/Home Medications Allergies/Adverse Reactions: Allergies Allergy/AdvReac Type Severity Reaction Status Date / Time No Known Allergies Allergy Verified 12/26/16 23:42 Home Medications: Home Medications Vilazodone (NF) [Viibryd (NF)] 40 mg PO DAILY 12/27/16 [History Confirmed ] PMH/Surg Hx/FS Hx/Imm Hx Previously Healthy: No Endocrine/Hematology History: Reports: Hx Diabetes Denies: Hx Anticoagulant Therapy, Hx Thyroid Disease Cardiovascular History: Denies: Hx Congestive Heart Failure, Hx Deep Vein Thrombosis, Hx Hypertension , Hx Myocardial Infarction, Hx Pacemaker/ICD, Hx Peripheral Vascular Disease Respiratory History: Denies: Hx Asthma, Hx Chronic Obstructive Pulmonary Disease (COPD), Hx Lung Cancer, Hx Pneumonia, Hx Pulmonary Embolism GI History: Denies: Hx Gall Bladder Disease, Hx Gastrointestinal Bleed, Hx Ulcer, Hx Urosepsis History: Denies: Hx Kidney Stones, Hx Renal Disease Musculoskeletal History: Reports: Hx Back Problems Denies: Hx Arthritis, Hx Osteoporosis Sensory History: Denies: Hx Cataracts, Hx Contacts or Glasses, Hx Glaucoma, Hx Hearing Aid Opthamlomology History: Denies: Hx Cataracts, Hx Contacts or Glasses, Hx Glaucoma Neurological History: Reports: Hx Headaches Denies: Hx Dementia, Hx Migraine, Hx Seizures, Hx Transient Ischemic Attacks (TIA) Psychiatric History: Reports: Hx Anxiety, Hx Depression, Hx Inpatient Treatment , Hx Community Mental Health Tx, Hx Bipolar Disorder, Hx Suicide Attempt, Hx Substance Abuse Denies: Hx Attention Deficit Hyperactivity Disorder, Hx Eating Disorder, Hx Panic Disorder, Hx Post Traumatic Stress Disorder, Hx Schizophrenia, Hx of Violent Episodes Against Others, Other Psychiatric Issues/Disorders - Surgical History Surgery Procedure, Year, and Place: abscess drained under general anesthesia - Immunization History Date of Tetanus Vaccine: unknown Infectious Disease History: No Infectious Disease History: Denies: Hx Clostridium Difficile, Hx Hepatitis, Hx Human Immunodeficiency Virus (HIV), Hx of Known/Suspected MRSA, Hx Shingles, Hx Tuberculosis, Hx Known/ Suspected VRE, Hx Known/Suspected VRSA, History Other Infectious Disease, Traveled Outside the [place] in Last 30 Days - Family History Known Family History: Negative: Cardiac Disease, Hypertension, Diabetes Family History: schizophrenia, bipolar disorder, anxiety disorders, depression, EtOH abuse. - Social History Alcohol Use: Rare Alcohol Amount: had approx 6 drinks last night Hx Substance Use: Yes Substance Use Type: Reports: Marijuana, Prescribed Substance Use Comment - Amount & Last Used: Benzo's Hx Tobacco Use: Yes Smoking Status (MU): Light Every Day Tobacco Smoker Type: Cigarettes Amount Used/How Often: 6 cigs/day in last 30 days and uses no other tobacco products in last 30day Length of Time of Smoking/Using Tobacco: 13 years Have You Smoked in the Last Year: Yes Review of Systems Negative: Fever Positive: Other - POS: SI (onset a week ago, worse today); NEG: suicidal plan All Other Systems Reviewed And Are Negative: Yes Physical Exam Triage Information Reviewed: Yes Vital Signs On Initial Exam: Initial Vitals Temp Pulse Resp BP Pulse Ox 97.2 F 122 18 113/72 97 12/26/16 23:39 12/26/16 23:39 12/26/16 23:39 12/26/16 23:39 12/26/16 23:39 Vital Signs Reviewed: Yes Appearance: Positive: Well-Appearing, No Pain Distress Skin: Positive: Warm Head/Face: Positive: Normal Head/Face Inspection Eyes: Positive: [place] ENT: Positive: Hearing grossly normal Neck: Positive: Supple Respiratory/Lung Sounds: Positive: Breath Sounds Present Cardiovascular: Positive: RRR Abdomen Description: Positive: Nontender, Soft Bowel Sounds: Positive: Present Musculoskeletal: Positive: Strength/ROM Intact Neurological: Positive: Alert, Oriented to Person Place, Time - [place] Coma Scale Coma Scale Total: 15 Diagnostics - Vital Signs Vital Signs Temp Pulse Resp BP Pulse Ox 12/27/16 00:28 97.3 F 101 16 106/68 95 12/26/16 23:42 97.2 F 122 18 113/72 97 12/26/16 23:39 97.2 F 122 18 113/72 97 - Laboratory Lab Results: Lab Results 12/27/16 12/27/16 Range/Units 00:44 00:44 WBC 12.8 H (3.5-10.8) 10^3/ul RBC 4.92 (4.0-5.4) 10^6/ul Hgb 15.9 (12.0-16.0) g/dl Hct 47 (35-47) % MCV 96 (80-97) fL MCH 32 H (27-31) pg MCHC 34 (31-36) g/dl RDW 12 (10.5-15) % Plt Count 232 (150-450) 10^3/ul MPV 9 (7.4-10.4) um3 Neut % (Auto) 69.3 (38-83) % Lymph % (Auto) 20.5 L (25-47) % [place] % (Auto) 5.8 (1-9) % Eos % (Auto) 3.3 (0-6) % Baso % (Auto) 1.1 (0-2) % Absolute Neuts (auto) 8.9 H (1.5-7.7) 10^3/ul Absolute Lymphs (auto) 2.6 (1.0-4.8) 10^3/ul Absolute Monos (auto) 0.7 (0-0.8) 10^3/ul Absolute Eos (auto) 0.4 (0-0.6) 10^3/ul Absolute Basos (auto) 0.1 (0-0.2) 10^3/ul Absolute Nucleated RBC 0.01 10^3/ul Nucleated RBC % 0.1 Sodium 131 L (133-145) mmol/L Potassium 3.7 (3.5-5.0) mmol/L Chloride 97 L (101-111) mmol/L Carbon Dioxide 17 L (22-32) mmol/L Anion Gap 17 H (2-11) mmol/L BUN 14 (6-24) mg/dL Creatinine 0.65 (0.51-0.95) mg/dL Est GFR ( Amer) 137.6 (>60) Est GFR (Non-Af Amer) 107.0 (>60) BUN/Creatinine Ratio 21.5 H (8-20) Glucose 302 H (70-100) mg/dL Calcium 9.3 (8.6-10.3) mg/dL Total Bilirubin 0.40 (0.2-1.0) mg/dL AST 17 (13-39) U/L ALT 10 (7-52) U/L Alkaline Phosphatase 126 H (34-104) U/L Total Protein 7.5 (6.4-8.9) g/dL Albumin 4.3 (3.2-5.2) g/dL Globulin 3.2 (2-4) g/dL Albumin/Globulin Ratio 1.3 (1-3) TSH Pending Salicylates Pending Acetaminophen Pending Serum Alcohol Pending Result Diagrams: 12/27/16 00:44 12/27/16 00:44 Lab Statement: Any lab studies that have been ordered have been reviewed, and results considered in the medical decision making process. Course/Dx - Course Assessment/Plan: The pt is a 31 y/o F presenting to the ED c/o SI that began a weekg ago. She reports that her SI has worsened in the last day, prompting an ED visit. She has been a patient at [facility] in the past. She says that she thinks about overdosing, per EMR. She drank a bottle of wine tonight, per EMR. These SI are aggravated and alleviated by nothing. Pt denies any medical complaints at this time. PMHx: DM, NICHOLE, depression, inpatient mental health treatment, community mental health treatment, bipolar disorder, suicide attempts , substance abuse. PSHx: abscess drainage under general anesthesia. SHx: smoker , rare alcohol use, marijuana use. Blood work shows WBC 12.8, Sodium 131, Chloride 97, CO2 17, Anion gap 17, Glucose 203, AlkPhos 126. UA shows 2+ ketones , trace leukocyte esterase, 1+ WBC, 3+ RBC, 2+ bacteria, yeast present, and 3+ glucose. Toxicology reveals serum alcohol 98 and presumptive positive for cannabinoids. The patient was cleared for MHE. - Differential Dx/Clinical Impression Differential Diagnosis/HQI/PQRI: Positive: Suicidal Ideation Provider Diagnosis: Suicidal ideation - Physician Notifications Instructed by Provider To: Admit As Inpatient Discharge - Discharge Plan Condition: Fair Disposition: PSYCHIATRIC FACILITY-[facility] Referrals: [facility] [Outside] () Estefani Forte MD [Primary Care Provider] - The documentation as recorded by the Cam kang Thomas accurately reflects the service I personally performed and the decisions made by me, Damion Hernandez MD.
[2016-12-27 01:33] LABS: Benzodiazepine Urine Screen None Detected (None Detect)
[2016-12-27] MEDS ORDERED: Acetaminophen TAB* 325 MG PO PRN (09:12)
[2016-12-27] MEDS ORDERED: Al Hydrox/Mg Hydrox/Simet LIQ* 30 ML UDC PO PRN (09:12)
[2016-12-27] MEDS ORDERED: traZODone TAB* 50 MG TAB PO PRN (09:15)
--- NOTE | 2016-12-27 09:16 | CONSULT ---
Consult Consult: MS. Gallegos came in on a previous shift and was medically cleared. She had a MHE and they offered her a voluntary admission. She will be admitted in stable condition with a diagnosis of Depression with SI.
[2016-12-27] MEDS: INSULIN ASPART 1 UNIT SUBCUT SCH ×2 (12:26→22:59)
[2016-12-27] MEDS: BuPROPion XL* 300 MG TAB.XL PO SCH (13:38)
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
[2016-12-27] MEDS ORDERED: PTO:Insulin ASPART (NF) 100 UNIT/ML VIAL SUBCUT SCH (18:00)
[2016-12-27] MEDS ORDERED: PTO:Brexpiprazole (NF) 3 MG TAB PO SCH (21:00)
[2016-12-28] MEDS: BuPROPion XL* 300 MG TAB.XL PO SCH (07:48)
[2016-12-28 08:53] VITALS: BP 133/78
--- NOTE | 2016-12-28 11:51 | PN ---
[facility]HU: Group Therapy Note - Service Type Service Type: 13901 Group Psychotherapy - Cognitive Behavioral Group Therapy ( CBT):Patient was attentive and participatory in CBT programming this morning, and remained in good behavioral control. Patient expressed positive insights regarding relevant treatment interventions and goals.
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
== END 2016-12-28 16:00 | disposition home or self-care (01) | DRG 885 ==
LOC: ED 23:14 → BSU 12-27 09:12
PROVIDERS: ADMIT Psychiatry & Neurology Psychiatry; ATTEND Psychiatry & Neurology Psychiatry
DX: F33.1 Major depressive disorder, recurrent, moderate (principal); E10.9 Type 1 diabetes mellitus without complications; R45.851 Suicidal ideations; F10.10 Alcohol abuse, uncomplicated; F12.10 Cannabis abuse, uncomplicated; Y90.4 Blood alcohol level of 80-99 mg/100 ml; E66.9 Obesity, unspecified; F60.3 Borderline personality disorder; F17.210 Nicotine dependence, cigarettes, uncomplicated; Z79.4 Long term (current) use of insulin; Z68.32 Body mass index [BMI] 32.0-32.9, adult; Z81.1 Family history of alcohol abuse and dependence; Z81.8 Family history of other mental and behavioral disorders
CPT/HCPCS: 36415; 80053; 80307; 80320; 80329; 81003; 81015; 83036; 84443; 85025; 87086; 90853; 99222; 99238; A9270-GY; G0480

== ENCOUNTER 2018-04-08 14:00 | Emergency (ER) | payer MEDICARE, MEDICAID ==
--- NOTE | 2018-04-08 14:18 | UC ---
Hand/Wrist HPI - HPI Summary HPI Summary: 32 yo female presents with RIGHT hand injury. She tells me that she was walking her dog earlier today and the dog pulled and the leash twisted her 3rd and 4th fingers. She has developed bruising and swelling to her 4th finger with decreased ROM. Denies numbness or tingling. - History Of Current Complaint Stated Complaint: R FINGER INJURY Time Seen by Provider: 04/08/18 14:18 Hx Obtained From: Patient Hx Last Menstrual Period: IUD Onset/Duration: Sudden Onset Severity Initially: Mild Severity Currently: Mild Pain Intensity: 3 Pain Scale Used: 0-10 Numeric - Allergies/Home Medications Allergies/Adverse Reactions: Allergies Allergy/AdvReac Type Severity Reaction Status Date / Time No Known Allergies Allergy Verified 04/08/18 14:27 Home Medications: Home Medications OXcarbazepine [Trileptal] 900 mg PO BID 04/08/18 [History Confirmed 04/08/18] PMH/Surg Hx/FS Hx/Imm Hx Endocrine History: Diabetes Psychological History: Anxiety, Depression, Bipolar Disorder, Schizophrenia Other History Of: Negative For: HIV, Hepatitis B, Hepatitis C, Anticoagulant Therapy - Surgical History Surgical History: Yes Surgery Procedure, Year, and Place: abscess drained under general anesthesia - Family History Known Family History: Positive: Other Negative: Cardiac Disease, Hypertension, Diabetes Family History: schizophrenia, bipolar disorder, anxiety disorders, depression, EtOH abuse. - Social History Lives: With Family Alcohol Use: Occasionally Alcohol Amount: had approx 6 drinks last night Substance Use Type: Marijuana, Prescribed Substance Use Comment - Amount & Last Used: Benzo's Smoking Status (MU): Light Every Day Tobacco Smoker Type: Cigarettes Amount Used/How Often: 2 packs per week Length of Time of Smoking/Using Tobacco: 13 years Have You Smoked in the Last Year: Yes Household Exposure Type: Cigarettes - Immunization History Most Recent Influenza Vaccination: 2011 Most Recent Tetanus Shot: "few years ago" Most Recent Pneumonia Vaccination: unknown Review of Systems All Other Systems Reviewed And Are Negative: Yes Constitutional: Positive: Negative Skin: Positive: Negative Respiratory: Positive: Negative Cardiovascular: Positive: Negative Neurovascular: Positive: Negative Musculoskeletal: Positive: Other: - Right hand pain Neurological: Positive: Negative Psychological: Positive: Negative Physical Exam - Summary Physical Exam Summary: GENERAL: NAD. WDWN. No pain distress. SKIN: No rashes, sores, lesions, or open wounds. CHEST: No accessory muscle use. Breathing comfortably and in no distress. CV: Pulses intact radial and ulnar. Cap refill <2seconds MSK: RIGHT hand: 3rd finger with DIP pain. 4th finger with moderate edema and ecchymosis with PIP and DIP TTP. FROM, but pain with flexion. 5th finger with generalized mild TTP. NEURO: Alert. Sensations intact hand and all fingers. PSYCH: Age appropriate behavior. Triage Information Reviewed: Yes Vital Signs: Vital Signs: Temp Pulse Resp BP Pulse Ox 97.7 F 110 18 123/84 97 04/08/18 14:22 04/08/18 14:22 04/08/18 14:22 04/08/18 14:22 04/08/18 14:22 Vital Signs Reviewed: Yes Hand/Wrist Course/Dx - Course Course Of Treatment: XR: IMPRESSION: COMMINUTED, NONDISPLACED, INTRA-ARTICULAR FRACTURE OF THE FOURTH MIDDLE PHALANX. Discussed results with pt. She was placed in a finger splint and advised to RICE and f/u with Orthopedics as soon as possible. - Differential Dx/Diagnosis Provider Diagnosis: Finger fracture, right Discharge - Sign-Out/Discharge Documenting (check all that apply): Patient Departure All imaging exams completed and their final reports reviewed: Yes - Discharge Plan Condition: Stable Disposition: HOME Patient Education Materials: Finger Fracture (ED) Referrals: Estefani Forte MD [Primary Care Provider] - Huber Yoo MD [Medical Doctor] - As Soon As Possible Additional Instructions: If you develop a fever, shortness of breath, chest pain, new or worsening symptoms - please call your PCP or go to the ED. 1) Rest, Ice, and elevate your hand/finger as much as possible 2) Use the finger splint at all times 3) Please call Orthopedics at the number below to schedule a follow up appointment as soon as possible - Billing Disposition and Condition Condition: STABLE Disposition: Home
[2018-04-08 14:27] VITALS: BP 123/84
== END 2018-04-08 15:14 | disposition home or self-care (01) ==
LOC: UCEAST 14:00
DX: S62.654A Nondisplaced fracture of middle phalanx of right ring finger, initial encounter for closed fracture (principal); X50.1XXA Overexertion from prolonged static or awkward postures, initial encounter; Y93.K1 Activity, walking an animal; Y92.9 Unspecified place or not applicable; F17.210 Nicotine dependence, cigarettes, uncomplicated
CPT/HCPCS: 99211; G0463